=== PATIENT | female | born 1955 | race Caucasian/White ===

== ENCOUNTER 2025-02-15 16:41 | Inpatient (IN) | payer SELFPAY ==
[2025-02-15 13:57] VITALS: BMI 15.4
[2025-02-15 13:58] VITALS: BP 148/88
[2025-02-15 14:00] VITALS: BP 107/71
--- NOTE | 2025-02-15 14:20 | ED.GENMED ---
History of Present Illness
<Faustino Valdivia PA-C - Last Filed: 02/15/25 15:48>
General
Chief Complaint: Fall
Source: patient
Exam Limitations: none
Time Seen by Provider: 02/15/25 14:02
History of Present Illness
History of Present Illness:
69-year-old female 2 pack-a-day smoker presents via EMS from home after a fall she sustained 5 days ago. She fell onto the floor and had immediate buttock pain and struck her eye. She was unable to get off the floor. She has been scooting around
the floor since then. She has been sleeping on the floor. She has had several visitors come to her house who have encouraged her to call 911 but she has not up until today. She is not anticoagulated. She notes sores on her buttock from scooting
around over the past several days. She denies fevers. No other complaints
Phy Exam
<Faustino Valdivia PA-C - Last Filed: 02/15/25 15:48>
Physical Exam
Physical Exam:
General: Well-developed female mild increased work of breathing
HEENT: Normal cephalic periorbital hematoma noted to the left eye pupils equal round reactive to light
Heart: Regular rate and rhythm
Lungs: Clear no wheeze
Skin: Breakdown of the skin noted over the sacrum and bilateral ischium. Musculoskeletal exam: The spine is nontender over the cervical and lumbar spine however she is tender over the posterior pelvis
There is no rotation or deformity of the legs
Neurologic exam: Alert and oriented good sensation to all extremities
Course
<Faustino Valdivia PA-C - Last Filed: 02/15/25 15:48>
Orders/Labs/Results
Orders:
Orders
02/15/25 14:12
CT Head W/o Iv Contrast Urgent
Comment:
Reason For Exam: fall
CR Pelvis - 1 Or 2 Views Urgent
Comment:
Reason For Exam: fall
02/15/25 14:24
Basic Metabolic Panel Urgent
CPK [Creatine Phosphokinase] Urgent
Complete Blood Count/With Diff Urgent
02/15/25 15:38
0.9% Sodium Chloride 1000 ml [Nss] 1,000 ml IV BOLUS
02/15/25 15:44
Morphine Sulfate 4 mg IV NOW STA
Abnormal Lab Results
02/15/25
14:24
WBC 11.6 H 10^3/uL
(4.8-10.8)
RBC 2.98 L 10^6/uL
(4.20-5.40)
Hgb 11.1 L g/dL
(12.0-16.0)
Hct 33.2 L %
(37.0-47.0)
MCV 111.4 H fL
(81.0-99.0)
MCH 37.2 H pg
(27.0-31.0)
Abs Immat Gran (auto) 0.1 H 10^3/uL
(0-0.05)
Absolute Neuts (auto) 10.0 H 10^3/uL
(1.4-6.5)
Absolute Lymphs (auto) 0.7 L 10^3/uL
(1.2-3.4)
Absolute Monos (auto) 0.8 H 10^3/uL
(0.1-0.6)
Neutrophils % 86.2 H %
(42.2-75.2)
Lymphocytes % 6.1 L %
(20.5-51.1)
Sodium 130 L mmol/L
(135-145)
BUN 50 H mg/dl
(7-17)
Glucose 118 H mg/dl
(70-99)
Creatine Kinase 2952 H U/L
(30-135)
02/15/25 14:24
02/15/25 14:24
Vital Signs
Initial and Last Documented VS:
Initial Vital Signs
Temp Pulse Resp BP Pulse Ox
97.9 F 109 25 148/88 98
02/15/25 13:58 02/15/25 13:58 02/15/25 13:58 02/15/25 13:58 02/15/25 13:58
Last Documented Vital Signs
Temp Pulse Resp BP Pulse Ox
97.9 F 98 21 152/68 97
02/15/25 13:58 02/15/25 15:38 02/15/25 15:38 02/15/25 15:38 02/15/25 15:38
<Cj Calderon, DO - Last Filed: 02/15/25 15:46>
Orders/Labs/Results
Orders:
Orders
02/15/25 14:12
CT Head W/o Iv Contrast Urgent
Comment:
Reason For Exam: fall
CR Pelvis - 1 Or 2 Views Urgent
Comment:
Reason For Exam: fall
02/15/25 14:24
Basic Metabolic Panel Urgent
CPK [Creatine Phosphokinase] Urgent
Complete Blood Count/With Diff Urgent
02/15/25 15:38
0.9% Sodium Chloride 1000 ml [Nss] 1,000 ml IV BOLUS
02/15/25 15:44
Morphine Sulfate 4 mg IV NOW STA
Abnormal Lab Results
02/15/25
14:24
WBC 11.6 H 10^3/uL
(4.8-10.8)
RBC 2.98 L 10^6/uL
(4.20-5.40)
Hgb 11.1 L g/dL
(12.0-16.0)
Hct 33.2 L %
(37.0-47.0)
MCV 111.4 H fL
(81.0-99.0)
MCH 37.2 H pg
(27.0-31.0)
Abs Immat Gran (auto) 0.1 H 10^3/uL
(0-0.05)
Absolute Neuts (auto) 10.0 H 10^3/uL
(1.4-6.5)
Absolute Lymphs (auto) 0.7 L 10^3/uL
(1.2-3.4)
Absolute Monos (auto) 0.8 H 10^3/uL
(0.1-0.6)
Neutrophils % 86.2 H %
(42.2-75.2)
Lymphocytes % 6.1 L %
(20.5-51.1)
Sodium 130 L mmol/L
(135-145)
BUN 50 H mg/dl
(7-17)
Glucose 118 H mg/dl
(70-99)
Creatine Kinase 2952 H U/L
(30-135)
02/15/25 14:24
02/15/25 14:24
Vital Signs
Initial and Last Documented VS:
Initial Vital Signs
Temp Pulse Resp BP Pulse Ox
97.9 F 109 25 148/88 98
02/15/25 13:58 02/15/25 13:58 02/15/25 13:58 02/15/25 13:58 02/15/25 13:58
Last Documented Vital Signs
Temp Pulse Resp BP Pulse Ox
97.9 F 98 21 152/68 97
02/15/25 13:58 02/15/25 15:38 02/15/25 15:38 02/15/25 15:38 02/15/25 15:38
Zoëlt;Faustino Valdivia PA-C - Last Filed: 02/15/25 15:48>
MDM/Problems Addressed
Differential Diagnosis Includes:
Fall with prolonged downtime. She has been on the floor since 5 days ago. She has evidence of skin breakdown. Will check CK for evidence of rhabdo. There is pelvic pain from the fall. X-ray of the pelvis pending CT of the head pending.
<Faustino Valdivia PA-C - Last Filed: 02/15/25 15:48>
*Pulse Oximetry
SaO2: 98
Oxygen Mode of Delivery: Room air
Patient hypoxic: no
*Critical Care Note
Total Time (30-74mins, 75-104mins- exclusive of procedures): Not Applicable
<Faustino Valdivia PA-C - Last Filed: 02/15/25 15:48>
Update Note
Update Note:
X-ray consistent with pubic rami fracture on the left. CPK is 2952 with BUN of 50. I suspect dehydration. Fluids ordered pain medicine ordered discussed with emergency room attending. Will admit to hospital
ED Attending Note
<Faustino Valdivia PA-C - Last Filed: 02/15/25 15:48>
-
Portions of this chart may have been created with voice recognition software.� Occasional wrong word or��sound alike� substitutions may have occurred due to the inherent limitations of voice recognition software.
<Cj Calderon DO - Last Filed: 02/15/25 15:46>
ED Attending Note
Patient seen and examined by attending physician: Yes
I performed the substantive portion of visit, reviewed & personally made and approve the management plan that is documented in note by myself or JUSTIN.: Yes
ED Attending Note:
I have seen and evaluated the patient with a [id number] encounter. I have spoken to the advance practicer provider and involved in the medical history, the physical exam, medical decision making.
Evaluation and management service: agree unless noted differently below.
Results interpretation: agree unless noted differently below.
Focused HPI: 69-year-old female presenting with left trip and fall a few days ago. Since then, patient has been unable to ambulate. She has been move around the floor for basic necessities
Physical exam: Bruising to left face. Pain to left pelvis.
Medical Decision Making: Patient found to have evidence of rhabdomyolysis and left pelvic fracture. Will admit based on the fact that she is unable to ambulate. Will start IV fluids and IV pain medicine
Discharge Plan
Departure
Patient Disposition: Admit
Date of Disposition: 02/15/25
Time of Disposition: 15:48
Presentation/result/management discussed w/ accepting MD/DO: Hospitalist
Discharge Problem:
Rhabdomyolysis, Closed fracture of pubic ramus
Prescriptions:
No Action
No Current Medications
0
Referrals:
NONE,* [Family Provider, Internal Medicine]
Interventions
Interventions:
*Risk Screen - Suicide Last Done: 02/15/25 14:15
*General Assessment Last Done: 02/15/25 14:15
*Neglect/Abuse Screening Last Done: 02/15/25 14:15
*ED- Fall Risk Assessment Last Done: 02/15/25 14:08
*ED COVID-19 Vaccine History Last Done: 02/15/25 14:08
*ED Influenza Vaccine History Last Done: 02/15/25 14:08
Discharge Date and Time
Print Language: EGYPTIAN
[2025-02-15 14:38] LABS: Hematocrit 33.2 % (37.0-47.0); Hemoglobin 11.1 g/dL (12.0-16.0); Mean Corp Hgb Conc. 33.4 g/dL (33.0-37.0); Mean Corpuscular Volume 111.4 fL (81.0-99.0); Nucleated Red Blood Cells % 0 %; Platelet Count 173 10^3/uL (130-400); Red Cell Dist. Width 13.5 % (11.5-14.5)
[2025-02-15 15:12] LABS: Blood Urea Nitrogen 50 mg/dl (7-17); Calcium 9.0 mg/dl (8.4-10.2); Carbon Dioxide 27 mmol/L (22-30); Chloride 100 mmol/L (98-107); Estimated Creatinine Clearance 36 ml/min; Glucose 118 mg/dl (70-99); Sodium 130 mmol/L (135-145); eGFR > 60.00
[2025-02-15 15:38] VITALS: BP 152/68
[2025-02-15] MEDS: NSS 1000 IV ×2 (15:47→18:10)
[2025-02-15] MEDS: MORPHINE SULFATE 4 MG IV (15:48)
[2025-02-15 16:00] VITALS: BP 154/69
--- NOTE | 2025-02-15 16:04 | HPS.HSE ---
Family Physician
-
Family Physician: * NONE
Chief Complaint
-
fall and butt pain
History of Present Illness
69-year-old female who is a smoker without past medical history presenting with fall 5 days ago. Fall was mechanical from her dogs not cooperating with her. Normally no ambulatory dysfunction. She fell onto the floor and had bilateral buttock
pain radiating to her thighs and lower back. She was unable to get off the floor. She has been scooting around the floor since then. She has been sleeping on the floor. She has had several visitors come to her house who have encouraged her to
call 911 but she has not done so until today because she does not have insurance and did not want to come to the hospital. She has sores on her butt from scooting around the past few days. Denies any fever.
She smokes 1 to 2 pack of cigarettes per day. She drinks 3-4 beers per week.
Medical History
Past Medical History
Past Medical History: Reports Other (none )
Past Surgical History: Reports Other (Hernia repair, D&Cs)
Social History
Tobacco: Smoker
Alcohol: Occasional
Drug: None
Family History
Family History: Not pertinent
Allergies / Home Medications
Allergies reflects when Allergies were last updated in [facility].
Home Medications with original date entered in [facility]
Allergy/Medication List:
Allergies
Allergy/AdvReac Type Severity Reaction Status Date / Time
No Known Allergies Allergy Unverified 02/15/25 14:15
Home Medications
No Meds [No Current Medications] 02/15/25
Review of Systems
-
History Source: Patient
A 12 point ROS was completed and negative except as noted: Yes
Constitutional: Reports No Symptoms
EENT: Reports No Symptoms
Respiratory: Reports No Symptoms
Cardiac: Reports No Symptoms
Abdomen/GI: Reports No Symptoms
: Reports No Symptoms
Musculoskeletal: Reports See HPI
Skin: Reports No Symptoms
Neurological: Reports No Symptoms
Endocrine: Reports No Symptoms
Hematologic/Lymphatic: Reports No Symptoms
Psych: Reports No Symptoms
Physical Exam
Vital Signs
Vital Signs
Temp Pulse Resp BP Pulse Ox
97.9 F 97 23 152/68 100
02/15/25 13:58 02/15/25 15:45 02/15/25 15:45 02/15/25 15:38 02/15/25 15:45
Physical Exam
General: Well Developed, Well Nourished and No Apparent Distress
HEENT: NormoCephalic, Moist mucous membranes and Atraumatic
Respiratory: Clear
Cardiac: S1/S2 and Regular Rhythm; No Murmur or Rub
GI: Soft, Non Tender, Non Distended and Normal Bowel Sounds; No Organomegaly
Rectal: Deferred by Provider
Musculoskeletal: No Clubbing, No Cyanosis and No Edema
Skin: No Rash
Neuro: Nonfocal/grossly intact
Laboratory Results
-
02/15/25 14:24
02/15/25 14:24
Laboratory Results
Total Bilirubin Cancelled 02/15/25 14:24
AST Cancelled 02/15/25 14:24
ALT Cancelled 02/15/25 14:24
Alkaline Phosphatase Cancelled 02/15/25 14:24
Data Reviewed
-
Lab Data: Labs Reviewed by me
Old Records: Reviewed
Impression/Plan
-
IMPRESSION:
PLAN:
# Mechanical fall with left inferior pubic rami fracture
- Tylenol, morphine for pain
- PT OT
# Left periorbital ecchymosis
- No symptoms
- CT head negative
# Acute rhabdomyolysis
- CK 30,00
-Leukocytosis
- IV fluids
# Presumably chronic anemia
- Hemoglobin 11.1
Smoker
- Nicotine patch
Full code
DVT prophylaxis�SCDs
Regular diet
[2025-02-15] MEDS: NICODERM TRANSDERMAL 14 MG TRANSDERM (16:31)
--- NOTE | 2025-02-15 17:18 | EDCM ---
CM reviewed chart and met with pt and daughter bedside in ED. Pt lives alone in 1 story home, 1-2 [address].
Pt fell 5 days ago and was unable, has skin breakdown on sacrum.
Independent in ADLs, personal care and ambulation at baseline. Does not use assistive devices, neighbor lent her 2 walkers.
Pt confirms she is uninsured, told me she did not apply for Medicare because she did not have any supplemental insurance.
Pt and daughter are working on Medicare application as it is open enrollment.
Does not have PCP.
[facility]
Anticipate discharge home, CM will continue to follow for all discharge planning needs.
[2025-02-15 17:49] VITALS: BMI 15.2
[2025-02-15 18:05] VITALS: BP 139/72
[2025-02-15] MEDS: MORPHINE SULFATE 2 MG IV (18:06)
--- NOTE | 2025-02-15 18:38 | PTCARENOTE ---
Pt arrived to unit around 1800 this shift. She was a pullover fro stretcher to bed with x3 staff. Pain meds given for pain. Skin assessment completed. VSS. Patient and daughter oriented to room and dinner ordered. Plan of care ongoing.
[2025-02-15] MEDS: MORPHINE SULFATE 1 MG IV (21:30)
[2025-02-15] MEDS: REMOVE NICOTINE PATCH 1 PATCH REMOVE (21:31)
[2025-02-15 23:00] VITALS: BP 134/58
[2025-02-16] MEDS: MORPHINE SULFATE 2 MG IV ×2 (05:28→19:11)
[2025-02-16 06:07] LABS: Hematocrit 27.5 % (37.0-47.0); Hemoglobin 9.1 g/dL (12.0-16.0); Mean Corp Hgb Conc. 33.1 g/dL (33.0-37.0); Mean Corpuscular Volume 114.6 fL (81.0-99.0); Nucleated Red Blood Cells % 0 %; Platelet Count 150 10^3/uL (130-400); Red Cell Dist. Width 13.3 % (11.5-14.5)
[2025-02-16] MEDS: TYLENOL 650 MG PO ×2 (06:13→20:37)
--- NOTE | 2025-02-16 06:28 | PTCARENOTE ---
Pt refusing Q2Ts. pt educated on importance of turns. Pt agreeable to have pillow placed under hip. Could only tolerate for 15 minutes. PRN pain meds were given prior to turning pt (see MAR). Call santoro within reach and plan of care ongoing.
[2025-02-16 06:37] LABS: ALT (SGPT) 69 U/L (0-35); AST (SGOT) 87 U/L (14-36); Albumin 2.5 g/dl (3.5-5.0); Alkaline Phosphatase 74 U/L (38-126); Blood Urea Nitrogen 21 mg/dl (7-17); Calcium 7.8 mg/dl (8.4-10.2); Carbon Dioxide 26 mmol/L (22-30); Chloride 104 mmol/L (98-107); Estimated Creatinine Clearance 59 ml/min; Glucose 91 mg/dl (70-99); Potassium 3.3 mmol/L (3.5-5.1); Sodium 129 mmol/L (135-145); Total Protein 5.2 g/dl (6.3-8.2); eGFR > 60.00
[2025-02-16] MEDS: NSS 1000 IV (07:16)
[2025-02-16 07:29] VITALS: BP 124/58
[2025-02-16] MEDS: NICODERM TRANSDERMAL 14 MG TRANSDERM (08:09)
--- NOTE | 2025-02-16 09:07 | W.PN.HOSP.TC ---
Today's Communication/Plan
-
Pain control
Assessment / Plan
Assessment / Plan
Physical exam:
General: Well Developed, Well Nourished and No Apparent Distress
HEENT: Significant ecchymosis of left periorbital. Normocephalic, traumatic and Moist Mucous Membranes
Respiratory: Clear to Auscultation; Negative Wheezes, Rales or Rhonchi
Cardiac: Regular Rhythm and S1/S2
GI: Soft, Nontender and Nondistended
Musculoskeletal: Tenderness pelvic area. No Clubbing, No Cyanosis and No Edema
Neuro: Awake, Alert and Oriented, no neurological deficit
Psych: Calm
A/P:
PLAN:
# Mechanical fall with left inferior pubic rami fracture
- Tylenol, morphine for pain. Add Oxy as needed
- PT OT recommends skilled rehab
# Left periorbital ecchymosis
- No symptoms
- CT head negative
#Hypokalemia
Replete and trend
# Acute rhabdomyolysis
- CK 30,00--> down to 760
-Leukocytosis
- Stop IV fluids
#Hyponatremia
Check basic hyponatremia workup
Trend sodium
# Presumably chronic anemia with some acute component or dilutional
- Hemoglobin 11.1--> down to 9.1 today
Smoker
- Nicotine patch
Full code
DVT prophylaxis�SCDs
Total time spent on today's encounter was 35 minutes which included time spent in counseling the patient/family regarding diagnosis and treatment plan as listed above, goals of care, and symptom management. Case was discussed with nursing staff,
specialists, and care coordinators/case management. All labs and imaging personally reviewed by me. Remainder the time spent in detailed review of previous records, lab data, imaging, and other medical provider documentation.
Anticipated Discharge: Within 24 hours
Subjective/Interval History
-
Date of Service: February 16, 2025
Patient states pain mostly in the buttock area but is better overall. Afebrile
Objective Data
-
Labs:
Laboratory Results
02/16/25
05:43
WBC 9.0
Hgb 9.1 L
Hct 27.5 L
Plt Count 150
Sodium 129 L
Potassium 3.3 L
Chloride 104
Carbon Dioxide 26
BUN 21 H
Creatinine 0.6
Glucose 91
Calcium 7.8 L
Total Bilirubin 0.6
AST 87 H
ALT 69 H
Alkaline Phosphatase 74
Vital Signs:
Vital Signs
Temp Pulse Resp BP Pulse Ox
99 F 93 18 124/58 94
02/16/25 07:29 02/16/25 07:29 02/16/25 07:29 02/16/25 07:29 02/16/25 07:29
I&O
02/15/25 02/16/25 02/17/25
05:59 06:59 06:59
Intake Total 240 / 240
Output Total 180 / 180
Balance 60 / 60
[2025-02-16] MEDS: KCL 40 MEQ PO (10:20)
--- NOTE | 2025-02-16 12:19 | WOUNDNOTE ---
R KNEE (DISTAL LATERAL)
--- NOTE | 2025-02-16 12:21 | WOUNDNOTE ---
WO RN note: Patient admitted with pubic rami fracture. Patient feel at home and did not get up for 5 days scooting on the floor. She lives alone and has a couple dogs.
See H&P for complete history.
PMH: Smoker, drinks 3-4 beers a day, hernia repair, smoker, anxiety.
Wound Location and type/assessment: Patient admitted with: Unstageable sacral pressure injury with with yellow/brown necrotic tissue, unstageable R ischial pressure injury with black/brown necrotic tissue, DTI L ischium with purple/black ecchymotic
tissue. R heel DTI. L heel blanchable persistent very red. L groin bruise. R elbow scabbed abrasions. L periorbital bruise. Back stage 2 pressure injury, scabbed. L hip stage 1 vs DTI, red/purple ecchymotic, non blanchable.
Appetite: patient hungry for lunch.
Pressure redistribution devices in place: [employer] Accumax. Patient cannot turn self in bed.
Plan: Silicone border foam changed on sacrum, bilateral ischium. Silicone border foam applied to L hip and spine. Static air overlay mattress applied with help from BUSTER Aquino. Patient pulled up in bed and repositioned with help from BUSTER Aquino.
Will update and confirm orders with Dr. Morocho and discussed with BUSTER Aquino. Patient may eventually require debridement of sacral/ischial pressure injuries. Instructed patient pressure injury prevention measures, heel elevation and to take air chair
cushion when discharged. Instructed patient to follow up at [facility].
Care plan to be updated and will follow as needed.
Note to case management of equipment requested for discharge: Air mattress.
Recommend follow up at wound care center upon discharge.
--- NOTE | 2025-02-16 12:36 | WOUNDNOTE ---
L KNEE (LATERAL DISTAL)
[2025-02-16 15:00] VITALS: BP 142/65
[2025-02-16 15:22] VITALS: BMI 15.2
[2025-02-16] MEDS: SENOKOT 8.6 MG PO (19:12)
[2025-02-16] MEDS: REMOVE NICOTINE PATCH 1 PATCH REMOVE (22:52)
[2025-02-16] MEDS: ROXICODONE 5 MG PO (22:57)
[2025-02-16 23:25] VITALS: BP 124/64
[2025-02-17] MEDS: ROXICODONE 5 MG PO ×2 (05:29→22:01)
[2025-02-17 05:54] LABS: Hematocrit 29.1 % (37.0-47.0); Hemoglobin 9.3 g/dL (12.0-16.0); Mean Corp Hgb Conc. 32.0 g/dL (33.0-37.0); Mean Corpuscular Volume 115.5 fL (81.0-99.0); Platelet Count 183 10^3/uL (130-400); Red Cell Dist. Width 13.4 % (11.5-14.5)
[2025-02-17 06:53] LABS: Blood Urea Nitrogen 8 mg/dl (7-17); Calcium 7.9 mg/dl (8.4-10.2); Carbon Dioxide 29 mmol/L (22-30); Chloride 101 mmol/L (98-107); Estimated Creatinine Clearance 59 ml/min; Glucose 87 mg/dl (70-99); Magnesium 1.9 mg/dl (1.6-2.3); Potassium 3.6 mmol/L (3.5-5.1); Sodium 127 mmol/L (135-145); eGFR > 60.00
[2025-02-17 07:21] LABS: Cortisol, Random 17.1 ug/dl
[2025-02-17 08:00] VITALS: BP 146/68
[2025-02-17] MEDS: MIRALAX 17 GRAMS PO (08:30)
[2025-02-17] MEDS: SANTYL OINTMENT 1 APPLIC TOPICAL (08:30)
[2025-02-17] MEDS: SENOKOT 8.6 MG PO ×2 (08:30→21:14)
[2025-02-17] MEDS: NICODERM TRANSDERMAL 14 MG TRANSDERM (08:31)
[2025-02-17] MEDS: DAKIN'S SOLUTION 0.125% 1/4 STRENGTH 473 ML TOPICAL (08:34)
--- NOTE | 2025-02-17 08:55 | W.PN.HOSP.TC ---
Addendum entered and electronically signed by Kareem Morocho MD 02/17/25 15:33:
Underweight
Traumatic rhabdomyolysis
Unstageable sacral pressure injury
Unstageable R ischial pressure injury
DTI L ischium
R heel DTI
Back stage 2 pressure injury
L hip stage 1, probable deep tissue injury
Original Note:
Today's Communication/Plan
-
Pain control. Oral fluid restriction intake
Assessment / Plan
Assessment / Plan
Physical exam:
General: Well Developed, Well Nourished and No Apparent Distress
HEENT: Significant ecchymosis of left periorbital. Normocephalic, traumatic and Moist Mucous Membranes
Respiratory: Clear to Auscultation; Negative Wheezes, Rales or Rhonchi
Cardiac: Regular Rhythm and S1/S2
GI: Soft, Nontender and Nondistended
Musculoskeletal: Tenderness pelvic area. No Clubbing, No Cyanosis and No Edema. Wounds present
Neuro: Awake, Alert and Oriented, no neurological deficit
Psych: Calm
A/P:
PLAN:
# Mechanical fall with left inferior pubic rami fracture
- Tylenol, morphine for pain. Add Oxy as needed
-Wound care eval
- PT OT recommends skilled rehab
# Left periorbital ecchymosis
- No symptoms
- CT head negative
#Hypokalemia
Repleted
# Acute rhabdomyolysis
- CK 30,00--> down to 760
-Leukocytosis
- Off IV fluids
#Hyponatremia--> mild worsening
Check basic hyponatremia workup and normal TSH and cortisol level but pending urine sodium and urine osmolarity
Start fluid oral restriction
Start salt tablet
Trend sodium
# Presumably chronic anemia with some acute component or dilutional
- Hemoglobin stable at 9.3 today
Smoker
- Nicotine patch
Full code
DVT prophylaxis�SCDs
Total time spent on today's encounter was 35 minutes which included time spent in counseling the patient/family regarding diagnosis and treatment plan as listed above, goals of care, and symptom management. Case was discussed with nursing staff,
specialists, and care coordinators/case management. All labs and imaging personally reviewed by me. Remainder the time spent in detailed review of previous records, lab data, imaging, and other medical provider documentation.
Anticipated Discharge: Within 24 hours
Subjective/Interval History
-
Date of Service: February 17, 2025
Patient pain better overall. No nausea or vomiting. Afebrile
Objective Data
-
Labs:
Laboratory Results
02/17/25
05:26
WBC 9.6
Hgb 9.3 L
Hct 29.1 L
Plt Count 183 D
Sodium 127 L
Potassium 3.6
Chloride 101
Carbon Dioxide 29
BUN 8
Creatinine 0.5 L
Glucose 87
Calcium 7.9 L
Vital Signs:
Vital Signs
Temp Pulse Resp BP Pulse Ox
98.5 F 91 14 146/68 93
02/17/25 08:00 02/17/25 08:00 02/17/25 08:00 02/17/25 08:00 02/17/25 08:00
I&O
02/16/25 02/17/25 02/18/25
06:59 06:59 06:59
Intake Total 240 / 240 940 / 940
Output Total 180 / 180 350 / 350
Balance 60 / 60 590 / 590
[2025-02-17] MEDS: MORPHINE SULFATE 2 MG IV ×2 (09:18→16:35)
[2025-02-17] MEDS: SODIUM CHLORIDE 1 GRAM PO ×2 (12:12→21:14)
--- NOTE | 2025-02-17 13:48 | PN.CDI ---
CDI
- -
CDI:
Physician Documentation Request
Admit Date: 02/15/25 16:41
Dear Doctor Bailee,
Patient admitted with left inferior pubic rami fracture.
02/16 N note, 'Patient admitted with: Unstageable sacral pressure injury with with yellow/brown necrotic tissue, unstageable R ischial pressure injury with black/brown necrotic tissue, DTI L ischium with purple/black ecchymotic tissue. R heel
DTI....Back stage 2 pressure injury, scabbed. L hip stage 1 vs DTI....'
Physician documentation of the type and location of wounds is required for compliant documentation. Based on the above clinical findings and your assessment, please provide the following in your progress note:
Type (etiology) of ulcer/wound:
- Pressure (decubitus) ulcer
- Other
- Unable to determine
For a pressure ulcer, please also include the stage* of the ulcer:
- Stage 1 - Skin intact, non-blanchable redness
- Stage 2 - Partial thickness loss of dermis, includes intact or open blister
- Stage 3 - Full thickness tissue not including bone, tendon or muscle
- Stage 4 - Full thickness tissue loss, including exposed bone, tendon or muscle
- Unstageable - Full thickness loss in which the base of the ulcer is covered by slough (yellow, colin, lynn, green or brown) and/or eschar (colin, brown or black) in the wound bed.
- Unable to determine
Use of terms such as suspected, likely, concern for, or probable (associated with a specific diagnosis that is being evaluated, monitored, or treated as if it exists) are acceptable and can be coded in the inpatient setting, when documented at the
time of discharge.
Thank you,
Phyllis DEY,RN,CCDS
CDI Specialist
Available via [place] text
Please use your independent medical judgment in providing your response.
*Source: National Pressure Ulcer Advisory Panel (NPUAP)
--- NOTE | 2025-02-17 14:01 | PN.CDI ---
CDI
- -
CDI:
Physician Documentation Request
Admit Date: 02/15/25 16:41
Dear Doctor Bailee,
Patient admitted with left inferior pubic rami fracture.
ED note, '....presents via EMS from home after a fall she sustained 5 days ago. She fell onto the floor and had immediate buttock pain and struck her eye. She was unable to get off the floor. She has been scooting around the floor since then.
She has been sleeping on the floor. '
02/16 PN, 'Acute rhabdomyolysis- CK 30,00--> down to 760.'
Please provide in your note the likely etiology of acute rhabdomyolysis:
Traumatic rhabdomyolysis
Non -traumatic rhabdomyolysis
Other
Use of terms such as suspected, likely, concern for, or probable (associated with a specific diagnosis that is being evaluated, monitored, or treated as if it exists) are acceptable and can be coded in the inpatient setting, when documented at the
time of discharge.
Thank you,
Phyllis DEY,RN,CCDS
CDI Specialist
Available via [place] text
Please use your independent medical judgment in providing your response.
--- NOTE | 2025-02-17 14:21 | PN.CDI ---
CDI
- -
CDI:
Physician Documentation Request
Admit Date: 02/15/25 16:41
Dear Doctor Bailee,
Patient admitted with left inferior pubic rami fracture.
Please review the following and provide your response in the progress notes.
Clinical Indicators:
Height: 5' 5'
Weight: 91 lb 2 oz
BMI: 15.2
Please provide an associated diagnosis related to the abnormal BMI, such as:
Underweight
Cachectic
Anorexia
Other
BMI < or = to 19
Underweight
Weight Loss
Cachectic
Anorexia
Use of terms such as suspected, likely, concern for, or probable (associated with a specific diagnosis that is being evaluated, monitored, or treated as if it exists) are acceptable and can be coded in the inpatient setting, when documented at the
time of discharge.
Thank you,
Phyllis DEY,RN,CCDS
CDI Specialist
Available via [place] text
Please use your independent medical judgment in providing your response.
[2025-02-17 15:00] VITALS: BP 136/73
[2025-02-17] MEDS: REMOVE NICOTINE PATCH 1 PATCH REMOVE (21:14)
[2025-02-17 23:00] VITALS: BP 137/73
[2025-02-18] MEDS: ROXICODONE 5 MG PO ×2 (04:16→09:10)
[2025-02-18 06:09] LABS: Blood Urea Nitrogen 5 mg/dl (7-17); Calcium 8.1 mg/dl (8.4-10.2); Carbon Dioxide 31 mmol/L (22-30); Chloride 98 mmol/L (98-107); Estimated Creatinine Clearance 59 ml/min; Glucose 121 mg/dl (70-99); Potassium 3.6 mmol/L (3.5-5.1); Sodium 130 mmol/L (135-145); eGFR > 60.00
[2025-02-18 07:00] VITALS: BP 146/78
[2025-02-18] MEDS: MIRALAX 17 GRAMS PO (08:23)
[2025-02-18] MEDS: NICODERM TRANSDERMAL 14 MG TRANSDERM (08:23)
[2025-02-18] MEDS: SENOKOT 8.6 MG PO ×2 (08:23→20:51)
[2025-02-18] MEDS: SANTYL OINTMENT 1 APPLIC TOPICAL (08:24)
[2025-02-18] MEDS: DAKIN'S SOLUTION 0.125% 1/4 STRENGTH 473 ML TOPICAL (08:24)
[2025-02-18] MEDS: SODIUM CHLORIDE 1 GRAM PO ×2 (08:25→20:51)
[2025-02-18] MEDS: MORPHINE SULFATE 2 MG IV ×2 (10:09→17:55)
[2025-02-18 10:27] VITALS: BP 140/88; PULSE 127; O2SAT 93
--- NOTE | 2025-02-18 11:40 | WOUNDNOTE ---
[facility] RN note: Patient assisted from recliner with air chair cushion to bed with air overlay mattress with RN Dom. Assisted RN Dom with dressing changes. Current wound care appropriate. Sacrum, bilateral ischial pressure injuries with yellow/brown
slough, unstageable. +Necrotic odor which dissipated after dressing removal. Wounds cleansed with Dakin's solution. Patient reports a good appetite. R heel purple/black ecchymotic, DTI. Dressings changed on heels. Spine abrasions dry/improved. L hip
is a resolving bruise, not a DTI. Will follow as needed.
--- NOTE | 2025-02-18 12:19 | W.PN.HOSP.TC ---
Today's Communication/Plan
-
Pain control. Discharge planning
Assessment / Plan
Assessment / Plan
Physical exam:
General: Well Developed, Well Nourished and No Apparent Distress
HEENT: Significant ecchymosis of left periorbital. Normocephalic, traumatic and Moist Mucous Membranes
Respiratory: Clear to Auscultation; Negative Wheezes, Rales or Rhonchi
Cardiac: Regular Rhythm and S1/S2
GI: Soft, Nontender and Nondistended
Musculoskeletal: Tenderness pelvic area. No Clubbing, No Cyanosis and No Edema. Wounds present
Neuro: Awake, Alert and Oriented, no neurological deficit
Psych: Calm
A/P:
PLAN:
# Mechanical fall with left inferior pubic rami fracture
- Tylenol, morphine for pain. Add Oxy as needed
-Wound care eval
- PT OT recommends skilled rehab
- updated daughter over the phone today
#Skin soft tissue
Traumatic rhabdomyolysis
Unstageable sacral pressure injury
Unstageable R ischial pressure injury
DTI L ischium
R heel DTI
Back stage 2 pressure injury
L hip stage 1, probable deep tissue injury
#Underweight
-Nutritional support
# Left periorbital ecchymosis
- No symptoms
- CT head negative
#Hypokalemia
Repleted
# Acute rhabdomyolysis
- CK 30,00--> down to 760
-Leukocytosis
- Off IV fluids
#Hyponatremia
Check basic hyponatremia workup and normal TSH and cortisol level but pending urine sodium and urine osmolarity
Continue fluid oral restriction
Continue salt tablet
Trend sodium
# Presumably chronic anemia with some acute component or dilutional
- Hemoglobin stable
Smoker
- Nicotine patch
Full code
DVT prophylaxis�SCDs
Total time spent on today's encounter was 35 minutes which included time spent in counseling the patient/family regarding diagnosis and treatment plan as listed above, goals of care, and symptom management. Case was discussed with nursing staff,
specialists, and care coordinators/case management. All labs and imaging personally reviewed by me. Remainder the time spent in detailed review of previous records, lab data, imaging, and other medical provider documentation.
Anticipated Discharge: 24 - 48 hours
Subjective/Interval History
-
Date of Service: February 18, 2025
Patient moving out from bed to chair today. Pain manageable. Afebrile
Objective Data
-
Labs:
Laboratory Results
02/18/25
05:25
Sodium 130 L
Potassium 3.6
Chloride 98
Carbon Dioxide 31 H
BUN 5 L
Creatinine 0.6
Glucose 121 H
Calcium 8.1 L
Vital Signs:
Vital Signs
Temp Pulse Resp BP Pulse Ox
98.1 F 112 16 146/78 94
02/18/25 07:00 02/18/25 07:00 02/18/25 07:00 02/18/25 07:00 02/18/25 07:30
I&O
02/17/25 02/18/25 02/19/25
06:59 06:59 06:59
Intake Total 940 / 940 920 / 920
Output Total 350 / 350 1775 / 1775
Balance 590 / 590 -855 / -855
--- NOTE | 2025-02-18 13:26 | WOUNDNOTE ---
WOC RN note: Anthony Keyes re: recommend an air mattress for patient at SNF. She has unstageable sacral and bilateral ischial pressure injuries.
[2025-02-18 15:00] VITALS: BP 120/58
[2025-02-18] MEDS: REMOVE NICOTINE PATCH 1 PATCH REMOVE (20:52)
[2025-02-18 23:47] VITALS: BP 116/73
[2025-02-19] MEDS: ROXICODONE 5 MG PO ×4 (01:33→17:00)
[2025-02-19 06:29] LABS: Hematocrit 27.8 % (37.0-47.0); Hemoglobin 9.7 g/dL (12.0-16.0)
[2025-02-19 07:00] VITALS: BP 108/73
[2025-02-19 07:14] LABS: Blood Urea Nitrogen 6 mg/dl (7-17); Calcium 7.9 mg/dl (8.4-10.2); Carbon Dioxide 28 mmol/L (22-30); Chloride 98 mmol/L (98-107); Estimated Creatinine Clearance 59 ml/min; Glucose 93 mg/dl (70-99); Potassium 3.9 mmol/L (3.5-5.1); Sodium 126 mmol/L (135-145); eGFR > 60.00
[2025-02-19] MEDS: MIRALAX 17 GRAMS PO (08:13)
[2025-02-19] MEDS: SANTYL OINTMENT 1 APPLIC TOPICAL (08:13)
[2025-02-19] MEDS: DAKIN'S SOLUTION 0.125% 1/4 STRENGTH 473 ML TOPICAL (08:14)
[2025-02-19] MEDS: NICODERM TRANSDERMAL 14 MG TRANSDERM (08:14)
[2025-02-19] MEDS: SENOKOT 8.6 MG PO ×2 (08:14→21:38)
[2025-02-19] MEDS: SODIUM CHLORIDE 1 GRAM PO ×2 (08:21→21:39)
--- NOTE | 2025-02-19 11:55 | W.PN.HOSP.TC ---
Today's Communication/Plan
-
Nephrology consult
Assessment / Plan
Assessment / Plan
Physical exam:
General: Well Developed, Well Nourished and No Apparent Distress
HEENT: Significant ecchymosis of left periorbital. Normocephalic, traumatic and Moist Mucous Membranes
Respiratory: Clear to Auscultation; Negative Wheezes, Rales or Rhonchi
Cardiac: Regular Rhythm and S1/S2
GI: Soft, Nontender and Nondistended
Musculoskeletal: Tenderness pelvic area. No Clubbing, No Cyanosis and No Edema. Wounds present
Neuro: Awake, Alert and Oriented, no neurological deficit
Psych: Calm
A/P:
PLAN:
#Hyponatremia--> worsening sodium to 126 today
Request nephrology consult given hyponatremia has worsened despite fluid restriction and salt tablets.
Continue to trend sodium
Checking basic hyponatremia workup and normal TSH and cortisol level but pending urine sodium and urine osmolarity
Continue fluid oral restriction
Continue salt tablet
Trend sodium
# Mechanical fall with left inferior pubic rami fracture
- Tylenol, morphine for pain. Add Oxy as needed
-Wound care eval
- PT OT recommends skilled rehab
- updated daughter over the phone yesterday
#Skin soft tissue
Traumatic rhabdomyolysis
Unstageable sacral pressure injury
Unstageable R ischial pressure injury
DTI L ischium
R heel DTI
Back stage 2 pressure injury
L hip stage 1, probable deep tissue injury
#Underweight
-Nutritional support
# Left periorbital ecchymosis
- No symptoms
- CT head negative
#Hypokalemia
Repleted
# Acute rhabdomyolysis
- CK 30,00--> down to 760
-Leukocytosis
- Off IV fluids
# Presumably chronic anemia with some acute component or dilutional
- Hemoglobin stable
Smoker
- Nicotine patch
Full code
DVT prophylaxis�SCDs
Total time spent on today's encounter was 35 minutes which included time spent in counseling the patient/family regarding diagnosis and treatment plan as listed above, goals of care, and symptom management. Case was discussed with nursing staff,
specialists, and care coordinators/case management. All labs and imaging personally reviewed by me. Remainder the time spent in detailed review of previous records, lab data, imaging, and other medical provider documentation.
Anticipated Discharge: 24 - 48 hours
Subjective/Interval History
-
Date of Service: February 19, 2025
Patient pain is manageable. Generalized weakness.
Objective Data
-
Labs:
Laboratory Results
02/19/25
06:12
Hgb 9.7 L
Hct 27.8 L
Sodium 126 L
Potassium 3.9
Chloride 98
Carbon Dioxide 28
BUN 6 L
Creatinine 0.5 L
Glucose 93
Calcium 7.9 L
Vital Signs:
Vital Signs
Temp Pulse Resp BP Pulse Ox
98.1 F 102 16 108/73 93
02/19/25 07:00 02/19/25 07:00 02/19/25 07:00 02/19/25 07:00 02/19/25 07:00
I&O
02/18/25 02/19/25 02/20/25
06:59 06:59 06:59
Intake Total 920 / 920 620 / 620
Output Total 1775 / 1775
Balance -855 / -855 620 / 620
--- NOTE | 2025-02-19 12:24 | W.CON.NEPH ---
Consultation
-
Date/Time Consultation Requested: 02/19/2025 11 AM
Date/Time Consultation Performed: 02/19/2025 12 PM
Requesting Provider: Dr. Morocho
Performing Provider: Dr. Cortez
Reason for Consultation: Hyponatremia
Medical History
-
Chief Complaint: Hyponatremia
History of Present Illness:
This is a 69-year-old female who has very limited past medical history as she has not seen a healthcare provider for 10 years time because of lack of health insurance. She presented to the emergency room because of a fall about 5 days prior to
admission. This was a mechanical incident. This had disturbed her ambulation and as it did not improve she finally decided that she need to come to the emergency room. She has not been eating or drinking as much since the incident because she had
no way of getting to the bathroom in a practical manner. In the emergency room she was noted to have a hyponatremic value sodium of 130 which has now fallen to 126. She was noted also with mild anemia. She was relatively hypotensive.
Past Medical History
Hernia repair, D&C
Social History
Tobacco: Smoker
Alcohol: Daily
Family History
Family History: Not Pertinent
Allergies / Home Medications
Allergy/AdvReac Type Severity Reaction Status Date / Time
No Known Allergies Allergy Unverified 02/15/25 14:15
�Medication �Instructions �Recorded �Confirmed �Type
No Meds [No Current Medications] 02/15/25 02/15/25 History
Review of Systems
-
Pain on buttocks and face
Bowel incontinence
All other systems: Negative unless noted
Physical Exam
Vital Signs
Vital Signs
Temp Pulse Resp BP Pulse Ox
98.1 F 102 16 108/73 93
02/19/25 07:00 02/19/25 07:00 02/19/25 07:00 02/19/25 07:00 02/19/25 07:45
Lab Results
WBC 9.6 10^3/uL (4.8-10.8) 02/17/25 05:26
RBC 2.52 10^6/uL (4.20-5.40) L 02/17/25 05:26
Hgb 9.7 g/dL (12.0-16.0) L 02/19/25 06:12
Hct 27.8 % (37.0-47.0) L 02/19/25 06:12
Plt Count 183 10^3/uL (130-400) D 02/17/25 05:26
Sodium 126 mmol/L (135-145) L 02/19/25 06:12
Potassium 3.9 mmol/L (3.5-5.1) 02/19/25 06:12
Chloride 98 mmol/L (98-107) 02/19/25 06:12
Carbon Dioxide 28 mmol/L (22-30) 02/19/25 06:12
BUN 6 mg/dl (7-17) L 02/19/25 06:12
Creatinine 0.5 mg/dL (0.6-1.0) L 02/19/25 06:12
eGFR > 60.00 02/19/25 06:12
Glucose 93 mg/dl (70-99) 02/19/25 06:12
Calcium 7.9 mg/dl (8.4-10.2) L 02/19/25 06:12
Albumin 2.5 g/dl (3.5-5.0) L 02/16/25 05:43
Physical Exam
Patient is awake alert oriented and in no distress. Mood and affect were pleasant, insight and judgment were good. Pupils are equal round and reactive to light, extraocular movements are intact, sclera were anicteric. Hearing was normal, ears and
nose are intact. Oropharynx was clear. Neck was supple with trachea midline and no thyromegaly. Heart was regular rate and rhythm without rubs. Lower extremities without edema. Lungs were clear to auscultation bilaterally and with normal
excursion. Abdomen was soft, nontender, with normal active bowel sounds, and no hepatosplenomegaly. Skin was without rash and with normal turgor. Ecchymoses noted on right side of her face
Data Reviewed
-
Radiology: Report Reviewed by me (Pelvis x-ray possible left inferior pubic ramus fracture)
CT Scan: Report Reviewed by me (CT head no acute disease)
Labs: Labs Reviewed by me
Assessment/Plan
-
Assessment
Fall
Anemia
Hyponatremia
Relative hypotension
Smoker
Plan
Check urine studies
Maintain mild fluid restriction
Follow BMP
Further intervention based on urine studies
[2025-02-19] MEDS: TYLENOL 650 MG PO (14:21)
[2025-02-19 15:00] VITALS: BP 126/56
--- NOTE | 2025-02-19 15:30 | PTCARENOTE ---
Pt states pain remains a 7/10 after both oxycodone and tylenol administration. Pt states she is going to try to avoid morphine at this time. She is aware that it remains an option if the pain continues to be severe. POC ongoing.
[2025-02-19] MEDS: REMOVE NICOTINE PATCH 1 PATCH REMOVE (21:39)
[2025-02-19] MEDS: MELATONIN 5 MG PO (21:39)
[2025-02-19 23:30] VITALS: BP 123/58
[2025-02-20] MEDS: ROXICODONE 5 MG PO ×3 (00:59→16:16)
[2025-02-20] MEDS: MORPHINE SULFATE 2 MG IV ×4 (02:32→23:18)
--- NOTE | 2025-02-20 05:04 | PTCARENOTE ---
Pt noted with drainage on sacral and b/l buttock dressings. Initially refused wound care, stating pain when turning. This RN educated pt on the importance of keeping dressings clean, dry, and intact to prevent infection. Pt verbalized understanding
and agreed to dressing change. Pt also refusing turns at certain times during the night. Education provided regarding the importance of turning every two hours to prevent further skin breakdown; pt verbalized understanding but continues to refuse
turning intermittently. Plan of care ongoing.
[2025-02-20 06:14] LABS: Blood Urea Nitrogen 7 mg/dl (7-17); Calcium 8.1 mg/dl (8.4-10.2); Carbon Dioxide 32 mmol/L (22-30); Chloride 99 mmol/L (98-107); Estimated Creatinine Clearance 59 ml/min; Glucose 88 mg/dl (70-99); Potassium 4.5 mmol/L (3.5-5.1); Sodium 131 mmol/L (135-145); eGFR > 60.00
[2025-02-20 07:00] VITALS: BP 132/68
[2025-02-20] MEDS: DAKIN'S SOLUTION 0.125% 1/4 STRENGTH 473 ML TOPICAL (08:35)
[2025-02-20] MEDS: SODIUM CHLORIDE 1 GRAM PO ×2 (08:39→21:05)
[2025-02-20] MEDS: MIRALAX 17 GRAMS PO (08:39)
[2025-02-20] MEDS: SANTYL OINTMENT 1 APPLIC TOPICAL (08:39)
[2025-02-20] MEDS: SENOKOT 8.6 MG PO ×2 (08:40→21:05)
[2025-02-20] MEDS: NICODERM TRANSDERMAL 14 MG TRANSDERM (08:40)
--- NOTE | 2025-02-20 11:35 | W.PN.HOSP.TC ---
Today's Communication/Plan
-
Monitor sodium. Discharge plan
Assessment / Plan
Assessment / Plan
Physical exam:
General: Well Developed, Well Nourished and No Apparent Distress
HEENT: Significant ecchymosis of left periorbital. Normocephalic, traumatic and Moist Mucous Membranes
Respiratory: Clear to Auscultation; Negative Wheezes, Rales or Rhonchi
Cardiac: Regular Rhythm and S1/S2
GI: Soft, Nontender and Nondistended
Musculoskeletal: Tenderness pelvic area. No Clubbing, No Cyanosis and No Edema. Wounds present
Neuro: Awake, Alert and Oriented, no neurological deficit
Psych: Calm
A/P:
PLAN:
#Hyponatremia--> today sodium improved up to 131
Nephrology consult appreciated
Continue to trend sodium
Checking basic hyponatremia workup and normal TSH and cortisol level. Urine sodium 73, urine osmolality 278
Continue fluid oral restriction
Continue salt tablet
Trend sodium
# Mechanical fall with left inferior pubic rami fracture
- Tylenol, morphine for pain. Add Oxy as needed
-Wound care eval
- PT OT recommends skilled rehab
- updated daughter over the phone yesterday
#Skin soft tissue
Traumatic rhabdomyolysis
Unstageable sacral pressure injury
Unstageable R ischial pressure injury
DTI L ischium
R heel DTI
Back stage 2 pressure injury
L hip stage 1, probable deep tissue injury
#Underweight
-Nutritional support
# Left periorbital ecchymosis
- No symptoms
- CT head negative
#Hypokalemia
Repleted
# Acute rhabdomyolysis
- CK 30,00--> down to 760
-Leukocytosis
- Off IV fluids
# Presumably chronic anemia with some acute component or dilutional
- Hemoglobin stable
Smoker
- Nicotine patch
Full code
DVT prophylaxis�SCDs
Total time spent on today's encounter was 35 minutes which included time spent in counseling the patient/family regarding diagnosis and treatment plan as listed above, goals of care, and symptom management. Case was discussed with nursing staff,
specialists, and care coordinators/case management. All labs and imaging personally reviewed by me. Remainder the time spent in detailed review of previous records, lab data, imaging, and other medical provider documentation.
Anticipated Discharge: Within 24 hours
Subjective/Interval History
-
Date of Service: February 20, 2025
Patient weak overall. Pain manageable. Sodium improving
Objective Data
-
Labs:
Laboratory Results
02/20/25
05:30
Sodium 131 L
Potassium 4.5
Chloride 99
Carbon Dioxide 32 H
BUN 7
Creatinine 0.6
Glucose 88
Calcium 8.1 L
Vital Signs:
Vital Signs
Temp Pulse Resp BP Pulse Ox
98.4 F 95 16 132/68 94
02/20/25 07:00 02/20/25 07:00 02/20/25 07:00 02/20/25 07:00 02/20/25 07:00
I&O
02/19/25 02/20/25 02/21/25
06:59 06:59 06:59
Intake Total 620 / 620 720 / 720
Balance 620 / 620 720 / 720
[2025-02-20 12:45] VITALS: BP 125/81; BP 138/84; PULSE 109; O2SAT 96
--- NOTE | 2025-02-20 14:07 | W.PN.NEPH.PH ---
Today's Communication / Plan
-
Sodium 131 will sign off okay for discharge from renal standpoint from a sodium perspective
Assessment/Plan
-
Assessment
Fall
Anemia
Hyponatremia
Relative hypotension
Smoker
Plan
Check urine studies
Maintain mild fluid restriction
Follow BMP
Sodium better 131
Will sign off
-
-
Date of Service: February 20, 2025
CC / HPI / ROS
-
No chest pain or shortness of breath
Labs
-
Labs:
WBC 9.6 10^3/uL (4.8-10.8) 02/17/25 05:26
RBC 2.52 10^6/uL (4.20-5.40) L 02/17/25 05:26
Hgb 9.7 g/dL (12.0-16.0) L 02/19/25 06:12
Hct 27.8 % (37.0-47.0) L 02/19/25 06:12
Plt Count 183 10^3/uL (130-400) D 02/17/25 05:26
Sodium 131 mmol/L (135-145) L 02/20/25 05:30
Potassium 4.5 mmol/L (3.5-5.1) 02/20/25 05:30
Chloride 99 mmol/L (98-107) 02/20/25 05:30
Carbon Dioxide 32 mmol/L (22-30) H 02/20/25 05:30
BUN 7 mg/dl (7-17) 02/20/25 05:30
Creatinine 0.6 mg/dL (0.6-1.0) 02/20/25 05:30
eGFR > 60.00 02/20/25 05:30
Glucose 88 mg/dl (70-99) 02/20/25 05:30
Calcium 8.1 mg/dl (8.4-10.2) L 02/20/25 05:30
Albumin 2.5 g/dl (3.5-5.0) L 02/16/25 05:43
Physical Exam
-
Vital Signs:
Vital Signs
Temp Pulse Resp BP Pulse Ox
98.4 F 95 16 132/68 94
02/20/25 07:00 02/20/25 07:00 02/20/25 07:00 02/20/25 07:00 02/20/25 07:00
[2025-02-20 15:00] VITALS: BP 117/45
[2025-02-20] MEDS: MELATONIN 5 MG PO (21:05)
[2025-02-20] MEDS: REMOVE NICOTINE PATCH 1 PATCH REMOVE (21:06)
[2025-02-20 23:09] VITALS: BP 125/55
[2025-02-21] MEDS: MORPHINE SULFATE 2 MG IV ×3 (05:57→18:10)
[2025-02-21 07:54] LABS: Hematocrit 29.9 % (37.0-47.0); Hemoglobin 9.9 g/dL (12.0-16.0)
[2025-02-21 07:59] VITALS: BP 117/58
[2025-02-21 08:18] LABS: Blood Urea Nitrogen 6 mg/dl (7-17); Calcium 8.2 mg/dl (8.4-10.2); Carbon Dioxide 27 mmol/L (22-30); Chloride 99 mmol/L (98-107); Estimated Creatinine Clearance 59 ml/min; Glucose 83 mg/dl (70-99); Potassium 4.2 mmol/L (3.5-5.1); Sodium 128 mmol/L (135-145); eGFR > 60.00
[2025-02-21] MEDS: DAKIN'S SOLUTION 0.125% 1/4 STRENGTH 473 ML TOPICAL (08:30)
[2025-02-21] MEDS: MIRALAX 17 GRAMS PO (08:35)
[2025-02-21] MEDS: SODIUM CHLORIDE 1 GRAM PO ×2 (08:36→20:02)
[2025-02-21] MEDS: SANTYL OINTMENT 1 APPLIC TOPICAL (08:36)
[2025-02-21] MEDS: SENOKOT 8.6 MG PO ×2 (08:36→20:02)
[2025-02-21] MEDS: TYLENOL 650 MG PO (08:36)
[2025-02-21] MEDS: NICODERM TRANSDERMAL 14 MG TRANSDERM (08:36)
[2025-02-21] MEDS: ROXICODONE 5 MG PO ×2 (09:37→21:09)
--- NOTE | 2025-02-21 09:37 | W.PN.HOSP.TC ---
Today's Communication/Plan
-
Continue PT OT. Fluid restriction. Pain control
Assessment / Plan
Assessment / Plan
Physical exam:
General: Well Developed, Well Nourished and No Apparent Distress
HEENT: Significant ecchymosis of left periorbital. Normocephalic, traumatic and Moist Mucous Membranes
Respiratory: Clear to Auscultation; Negative Wheezes, Rales or Rhonchi
Cardiac: Regular Rhythm and S1/S2
GI: Soft, Nontender and Nondistended
Musculoskeletal: Tenderness pelvic area. No Clubbing, No Cyanosis and No Edema. Wounds present
Neuro: Awake, Alert and Oriented, no neurological deficit
Psych: Calm
A/P:
PLAN:
# Mechanical fall with left inferior pubic rami fracture
- Tylenol, morphine for pain. Add Oxy as needed
-Wound care eval
- PT OT recommends skilled rehab
- updated daughter at bedside today
- Patient is unsafe to go home at the moment. Discussed with patient and daughter at bedside. Discussed with correctional counselor/case manager as well discharge disposition. She cannot go home at the moment unless she has some improvement in her ability to move
around and take care of by herself so we will reevaluate over the next 24 to 48 hours.
#Hyponatremia
Sodium fluctuates-today sodium 128
Nephrology consult appreciated
Continue to trend sodium
Checking basic hyponatremia workup and normal TSH and cortisol level. Urine sodium 73, urine osmolality 278
Continue fluid oral restriction
Continue salt tablet
Trend sodium
#Skin soft tissue
Traumatic rhabdomyolysis
Unstageable sacral pressure injury
Unstageable R ischial pressure injury
DTI L ischium
R heel DTI
Back stage 2 pressure injury
L hip stage 1, probable deep tissue injury
#Underweight
-Nutritional support
# Left periorbital ecchymosis
- No symptoms
- CT head negative
#Hypokalemia
Repleted
# Acute rhabdomyolysis
- CK 30,00--> down to 85
-Leukocytosis
- Off IV fluids
# Presumably chronic anemia with some acute component or dilutional
- Hemoglobin stable although small drift down. Today hemoglobin 9.9
Smoker
- Nicotine patch
Full code
DVT prophylaxis�SCDs
Total time spent on today's encounter was 52 minutes which included time spent in counseling the patient/family regarding diagnosis and treatment plan as listed above, goals of care, and symptom management. Case was discussed with nursing staff,
specialists, and care coordinators/case management. All labs and imaging personally reviewed by me. Remainder the time spent in detailed review of previous records, lab data, imaging, and other medical provider documentation. More than 50% of the
time spent on counseling and coordination with patient, family, and correctional counselor/case manager.
Anticipated Discharge: > 48 hours
Subjective/Interval History
-
Date of Service: February 21, 2025
Patient states pain is manageable but still ongoing. She is also very weak and unable to get out of bed without assistance. Afebrile
Objective Data
-
Labs:
Laboratory Results
02/21/25
06:40
Hgb 9.9 L
Hct 29.9 L
Sodium 128 L
Potassium 4.2
Chloride 99
Carbon Dioxide 27
BUN 6 L
Creatinine 0.5 L
Glucose 83
Calcium 8.2 L
Vital Signs:
Vital Signs
Temp Pulse Resp BP Pulse Ox
98.2 F 88 18 117/58 93
02/21/25 07:59 02/21/25 07:59 02/21/25 07:59 02/21/25 07:59 02/21/25 07:59
I&O
02/20/25 02/21/25 02/22/25
06:59 06:59 06:59
Intake Total 720 / 720 240 / 240
Balance 720 / 720 240 / 240
[2025-02-21] MEDS: FLUSH (NSS) 2 FLUSH IV (11:52)
[2025-02-21 15:39] VITALS: BP 120/64
[2025-02-21] MEDS: MELATONIN 5 MG PO (21:08)
[2025-02-21] MEDS: REMOVE NICOTINE PATCH 1 PATCH REMOVE (21:10)
[2025-02-21 23:00] VITALS: BP 124/68
[2025-02-22] MEDS: MORPHINE SULFATE 2 MG IV ×3 (06:05→20:16)
[2025-02-22] MEDS: TYLENOL 650 MG PO ×2 (06:57→13:00)
[2025-02-22 07:31] VITALS: BP 132/60
[2025-02-22] MEDS: MIRALAX 17 GRAMS PO (08:14)
[2025-02-22] MEDS: NICODERM TRANSDERMAL 14 MG TRANSDERM (08:14)
[2025-02-22] MEDS: SANTYL OINTMENT 1 APPLIC TOPICAL (08:15)
[2025-02-22] MEDS: SODIUM CHLORIDE 1 GRAM PO ×2 (08:15→20:16)
[2025-02-22] MEDS: ROXICODONE 5 MG PO ×2 (08:15→17:15)
[2025-02-22] MEDS: SENOKOT 8.6 MG PO ×2 (08:15→20:16)
[2025-02-22] MEDS: DAKIN'S SOLUTION 0.125% 1/4 STRENGTH 473 ML TOPICAL (08:15)
[2025-02-22 10:36] LABS: Blood Urea Nitrogen 7 mg/dl (7-17); Calcium 8.1 mg/dl (8.4-10.2); Carbon Dioxide 27 mmol/L (22-30); Chloride 99 mmol/L (98-107); Estimated Creatinine Clearance 59 ml/min; Glucose 74 mg/dl (70-99); Potassium 4.0 mmol/L (3.5-5.1); Sodium 128 mmol/L (135-145); eGFR > 60.00
[2025-02-22 11:44] LABS: Hematocrit 30.7 % (37.0-47.0); Hemoglobin 9.9 g/dL (12.0-16.0); Mean Corp Hgb Conc. 32.2 g/dL (33.0-37.0); Mean Corpuscular Volume 114.1 fL (81.0-99.0); Nucleated Red Blood Cells % 0 %; Platelet Count 413 10^3/uL (130-400); Red Cell Dist. Width 13.6 % (11.5-14.5)
--- NOTE | 2025-02-22 13:52 | W.PN.HOSP.TC ---
Today's Communication/Plan
-
Monitor sodium. PT OT. Discharge planning
Assessment / Plan
Assessment / Plan
Physical exam:
General: Acutely ill
HEENT: Significant ecchymosis of left periorbital. Normocephalic, traumatic and Moist Mucous Membranes
Respiratory: Clear to Auscultation; Negative Wheezes, Rales or Rhonchi
Cardiac: Regular Rhythm and S1/S2
GI: Soft, Nontender and Nondistended
Musculoskeletal: Tenderness pelvic area. No Clubbing, No Cyanosis and No Edema. Wounds present
Neuro: Awake, Alert and Oriented, no neurological deficit, but generalized weakness
Psych: Calm
A/P:
PLAN:
# Mechanical fall with left inferior pubic rami fracture
- Tylenol, morphine for pain. Added Oxy as needed
-Wound care eval
- PT OT recommends skilled rehab
- updated daughter at bedside yesterday
- Patient is unsafe to go home at the moment. Discussed with patient and daughter at bedside. Discussed with senior case manager as well discharge disposition. She cannot go home at the moment unless she has some improvement in her ability to move
around and take care of by herself so we will reevaluate over the next 24 to 48 hours.
- Continue PT OT
- Discussed with senior case manager in person today and aiming for SNF but there is some barriers in terms of insurance and they will look into that.
#Hyponatremia
Sodium fluctuates-today sodium 128
Nephrology consult appreciated
Continue to trend sodium
Checking basic hyponatremia workup and normal TSH and cortisol level. Urine sodium 73, urine osmolality 278
Continue fluid oral restriction
Continue salt tablet
Trend sodium
#Skin soft tissue
Traumatic rhabdomyolysis
Unstageable sacral pressure injury
Unstageable R ischial pressure injury
DTI L ischium
R heel DTI
Back stage 2 pressure injury
L hip stage 1, probable deep tissue injury
Continue pain control
#Underweight
-Nutritional support
# Left periorbital ecchymosis
- No symptoms
- CT head negative
#Hypokalemia
Repleted
# Acute rhabdomyolysis
- CK 30,00--> down to 85
-Leukocytosis
- Off IV fluids
# Presumably chronic anemia with some acute component or dilutional
- Hemoglobin stable although small drift down. Today hemoglobin 9.9
Smoker
- Nicotine patch
Full code
DVT prophylaxis�SCDs
Total time spent on today's encounter was 36 minutes which included time spent in counseling the patient/family regarding diagnosis and treatment plan as listed above, goals of care, and symptom management. Case was discussed with nursing staff,
specialists, and care coordinators/case management. All labs and imaging personally reviewed by me. Remainder the time spent in detailed review of previous records, lab data, imaging, and other medical provider documentation. More than 50% of the
time spent on counseling and coordination with patient, family, and senior case manager.
Anticipated Discharge: 24 - 48 hours
Subjective/Interval History
-
Date of Service: February 22, 2025
Patient still very weak overall although she states that she is moving a bit more. Afebrile.
Objective Data
-
Labs:
Laboratory Results
02/22/25
06:58
WBC 9.4
Hgb 9.9 L
Hct 30.7 L
Plt Count 413 H D
Sodium 128 L
Potassium 4.0
Chloride 99
Carbon Dioxide 27
BUN 7
Creatinine 0.5 L
Glucose 74
Calcium 8.1 L
Vital Signs:
Vital Signs
Temp Pulse Resp BP Pulse Ox
98.4 F 92 20 132/60 93
02/22/25 07:31 02/22/25 07:31 02/22/25 07:31 02/22/25 07:31 02/22/25 07:31
I&O
02/21/25 02/22/25 02/23/25
06:59 06:59 06:59
Intake Total 240 / 240 570 / 570
Balance 240 / 240 570 / 570
[2025-02-22 16:08] VITALS: BP 147/66
[2025-02-22] MEDS: MELATONIN 5 MG PO (21:06)
[2025-02-22] MEDS: REMOVE NICOTINE PATCH 1 PATCH REMOVE (21:06)
[2025-02-22 23:48] VITALS: BP 110/67
[2025-02-23] MEDS: ROXICODONE 5 MG PO ×4 (02:03→23:44)
[2025-02-23 07:44] VITALS: BP 150/70
[2025-02-23] MEDS: MORPHINE SULFATE 2 MG IV ×3 (07:50→21:31)
[2025-02-23] MEDS: NICODERM TRANSDERMAL 14 MG TRANSDERM (07:52)
[2025-02-23] MEDS: SENOKOT 8.6 MG PO ×2 (07:52→21:25)
[2025-02-23] MEDS: MIRALAX 17 GRAMS PO ×2 (07:52→21:24)
[2025-02-23] MEDS: SANTYL OINTMENT 1 APPLIC TOPICAL ×2 (07:54→21:25)
[2025-02-23] MEDS: DAKIN'S SOLUTION 0.125% 1/4 STRENGTH 473 ML TOPICAL ×2 (07:55→21:27)
[2025-02-23] MEDS: SODIUM CHLORIDE 1 GRAM PO ×2 (07:55→21:26)
[2025-02-23 08:33] LABS: Blood Urea Nitrogen 5 mg/dl (7-17); Calcium 8.3 mg/dl (8.4-10.2); Carbon Dioxide 28 mmol/L (22-30); Chloride 100 mmol/L (98-107); Estimated Creatinine Clearance 59 ml/min; Glucose 89 mg/dl (70-99); Potassium 4.2 mmol/L (3.5-5.1); Sodium 128 mmol/L (135-145); eGFR > 60.00
--- NOTE | 2025-02-23 09:58 | WOUNDNOTE ---
WO RN note: Patient continues with pain with turning/wound care. She was medicated for pain this am. Sacrum and bilateral ischial wound care done. Ischial ulcers yellow/colin necrotic. Sacral ulcer yellow/colin necrotic with pink wound edges. +Necrotic
odor. Minimal local erythema. L heel stage 1 pressure injury. R heel DTI. L lateral knee deep dermal ulcer (deep dermal stage 2 vs abrasion). Patient reports 90% intake of her breakfast. Patient is on a air overlay mattress and has an air chair
cushion. Heel foam dressings changed. L lateral knee foam dressing changed. Patient turned to L semi side lying position with help from RN student Whitney. Tru[employer]ue lite boots applied. Discussed with RN Marya who confirmed patient is getting
supplemental pudding. [place] texted Dr. Muñiz sacral and ischial wound pictures noting sacral/ischial wounds have demarcated and have yellow/colin necrosis; asked if surgeon evaluation indicated for debridement and defer to hospitalist if Xray
indicated to r/t osteomyelitis. WBC normal yesterday. Dr. Muñiz approved increasing wound care to bid. Will follow as needed.
[2025-02-23 11:18] VITALS: BP 147/77; PULSE 101; PULSE 98; O2SAT 97; O2SAT 99
--- NOTE | 2025-02-23 12:07 | CM ---
Addendum entered by Yary Cai 02/23/25 15:43:
Per [facility] event representative patient does not qualify for [facility] but she will review and call to patient daughter to review options.
Original Note:
Patient seen at bedside on . Patient states she is concerned about her dogs at home. Patient daughter is here for another week from [place]. Patient would like to talk to [facility] and she indicated that she wants to go home with [facility] but she is aware
that she has to also sign up for [facility]. Patient with many concerns about insurance. CM provided list of SNF options and will call to [facility] and request her to follow for supports. CM will continue to follow for discharge planning needs.
Plan; home with [facility] vs SNF; need [facility] and [facility]
--- NOTE | 2025-02-23 14:06 | W.PN.HOSP.TC ---
Today's Communication/Plan
-
CT Pelvis
follow up surgery recs
fluid restriction, monitor sodium
pain control
PT/OT - continued dispo discussions
Assessment / Plan
Assessment / Plan
A/P:
PLAN:
# Mechanical fall with left inferior pubic rami fracture
- Tylenol, Oxycodone PRN
- PT/OT recommending SNF, patient prefers to go home.
Sacral and ischemial ulcers
-appreciate wound care
-Surgical consult for debridement, CT Pelvis recommended - ordered
Hyponatremia
-appreciate renal
-increase fluid restriction
-continue salt tablet
Trend sodium
#Skin soft tissue
-Traumatic rhabdomyolysis
-Unstageable sacral pressure injury
-Unstageable R ischial pressure injury
-DTI L ischium
-R heel DTI
- stage 2 pressure injury
-L hip stage 1, probable deep tissue injury
-Continue pain control
#Underweight
-Nutritional support
# Left periorbital ecchymosis
- No symptoms
- CT head negative
#Hypokalemia
Repleted
# Acute rhabdomyolysis
- CK 30,00--> down to 85
-Leukocytosis
- Off IV fluids
# Presumably chronic anemia with some acute component or dilutional
- Hemoglobin stable although small drift down. Today hemoglobin 9.9
Smoker
- Nicotine patch
Full code
DVT prophylaxis�SCDs
51 minute spent on patient care
Anticipated Discharge: 24 - 48 hours
Subjective/Interval History
-
Date of Service: February 23, 2025
pain in left buttocks region, especially when standing
states she is eating okay and drinking less water
Objective Data
-
Labs:
Laboratory Results
02/23/25
07:35
Sodium 128 L
Potassium 4.2
Chloride 100
Carbon Dioxide 28
BUN 5 L
Creatinine 0.5 L
Glucose 89
Calcium 8.3 L
Vital Signs:
Vital Signs
Temp Pulse Resp BP Pulse Ox
98.2 F 92 18 150/70 95
02/23/25 07:44 02/23/25 07:44 02/23/25 07:44 02/23/25 07:44 02/23/25 09:32
I&O
02/22/25 02/23/25 02/24/25
06:59 06:59 06:59
Intake Total 570 / 570 1260 / 1260
Balance 570 / 570 1260 / 1260
Review of Systems
-
History Source: Patient
All other systems: Reviewed and negative
Physical Exam
-
General: No Apparent Distress
HEENT: PERRLA and Other (left periorbital ecchymosis )
Respiratory: Clear to Auscultation; Negative Wheezes
Cardiac: S1/S2
GI: Soft and Nontender
Skin: Warm, Dry and Other (please see wound care note for photos of sacral wound )
Neuro: AO x 3
Psych: Calm
Data Reviewed
-
Diagnostic Radiology: Report Reviewed by me
Labs: Labs Reviewed by me
[2025-02-23 15:00] VITALS: BP 141/70
--- NOTE | 2025-02-23 17:10 | CON.GS ---
Consultation
-
Date/Time Consultation Requested: 02/23/2025 3 PM
Date/Time Consultation Performed: 02/23/2025 4 PM
Requesting Provider: Dr. Muñiz
Performing Provider: Dr. Hart
Reason for Consultation: Sacral wounds
Medical History
-
Chief Complaint: Sacral wounds
History of Present Illness:
This is a 69-year-old female status post recent mechanical fall with left inferior pubic rami fracture was also noted to have sacral wounds for which general surgery was consulted and recommended CT and imaging. Patient states that after she fell
she was trying to get her dogs in and out of the house so 'scooted on her butt' for about a day before the pain became unbearable. The patient denies staying in any 1 position for a prolonged period of time, previous wounds in her sacrum, fever,
Chest Pain, Shortness Of Breath, Nausea, Vomiting, changes in urinary and bowel habits.
Past Medical History
Past Medical History: None
Past Surgical History: None
Social History
Tobacco: Smoker
Alcohol: Daily
Living: Alone
Family History
Family History: Reviewed & Not Pertinent
Allergies / Home Medications
Allergy/AdvReac Type Severity Reaction Status Date / Time
No Known Allergies Allergy Unverified 02/15/25 14:15
�Medication �Instructions �Recorded �Confirmed �Type
No Meds [No Current Medications] 02/15/25 02/15/25 History
Review of Systems
-
All other systems: Negative unless noted
A 10 point review of systems was completed, and was negative except as per HPI.
Physical Exam
Vital Signs
Temp Pulse Resp BP Pulse Ox
98.5 F 115 17 141/70 97
02/23/25 15:00 02/23/25 15:00 02/23/25 15:00 02/23/25 15:00 02/23/25 15:00
Body Mass Index (BMI) 15.2
Lab Results
02/22/25 06:58
02/23/25 07:35
WBC 9.4 10^3/uL (4.8-10.8) 02/22/25 06:58
Hgb 9.9 g/dL (12.0-16.0) L 02/22/25 06:58
Hct 30.7 % (37.0-47.0) L 02/22/25 06:58
Plt Count 413 10^3/uL (130-400) H D 02/22/25 06:58
Abs Immat Gran (auto) 0.1 10^3/uL (0-0.05) H 02/22/25 06:58
Neutrophils % 79.1 % (42.2-75.2) H 02/22/25 06:58
Physical Exam
Skin: Other (She has large but shallow wounds with dry gangrene on her sacrum and ischium respectively. There is a foul odor but no fluctuance or discharge.)
Neuro: AO x 3
Data Reviewed
-
CT Scan: Image Personally Visualized and interpreted, Report Reviewed by me, Discussed with Physician and Discussed with Patient
Labs: Labs Reviewed by me and Discussed with Patient
Total Time Spent with Patient (in minutes): 30
Assessment / Plan
-
This is a 69-year-old female who presents with traumatic sacral wounds consistent with dry gangrene. Physical exam and CT imaging confirm no underlying abscess.
Wound care: Would cover all wounds with Santyl followed by an occlusive dressing and changed twice daily.
Bedside debridement was also discussed but given her tenderness I am not sure she would be able to tolerate it. Will proceed with nonoperative management for now before considering operative debridement under anesthesia
no role for antibiotics at this time.
Increase protein intake
Smoking and drinking cessation
General surgery will sign off for now, please call with any questions or concerns.
Patient to follow-up with me as an outpatient in 3 to 4 weeks.
[2025-02-23] MEDS: REMOVE NICOTINE PATCH 1 PATCH REMOVE (21:26)
[2025-02-23] MEDS: MELATONIN 5 MG PO (21:26)
[2025-02-23 23:14] VITALS: BP 116/55
[2025-02-24 04:47] VITALS: BP 124/62
[2025-02-24] MEDS: MORPHINE SULFATE 2 MG IV ×2 (04:48→10:51)
[2025-02-24 05:54] LABS: Hematocrit 28.3 % (37.0-47.0); Hemoglobin 9.5 g/dL (12.0-16.0); Mean Corp Hgb Conc. 33.6 g/dL (33.0-37.0); Mean Corpuscular Volume 108.0 fL (81.0-99.0); Platelet Count 447 10^3/uL (130-400); Red Cell Dist. Width 13.4 % (11.5-14.5)
[2025-02-24 06:18] LABS: Blood Urea Nitrogen 8 mg/dl (7-17); Calcium 8.3 mg/dl (8.4-10.2); Carbon Dioxide 31 mmol/L (22-30); Chloride 99 mmol/L (98-107); Estimated Creatinine Clearance 59 ml/min; Glucose 85 mg/dl (70-99); Magnesium 2.2 mg/dl (1.6-2.3); Potassium 4.3 mmol/L (3.5-5.1); Sodium 127 mmol/L (135-145); eGFR > 60.00
[2025-02-24 07:00] VITALS: BP 120/61
[2025-02-24] MEDS: SENOKOT PO ×2 (07:47→21:30)
[2025-02-24] MEDS: MIRALAX PO ×2 (07:47→21:30)
[2025-02-24] MEDS: ROXICODONE 5 MG PO (08:10)
[2025-02-24] MEDS: SANTYL OINTMENT 1 APPLIC TOPICAL ×2 (08:11→21:31)
[2025-02-24] MEDS: NICODERM TRANSDERMAL 14 MG TRANSDERM (08:11)
[2025-02-24] MEDS: SODIUM CHLORIDE 1 GRAM PO ×2 (08:11→21:30)
[2025-02-24] MEDS: DAKIN'S SOLUTION 0.125% 1/4 STRENGTH 473 ML TOPICAL ×2 (08:12→21:31)
--- NOTE | 2025-02-24 12:04 | W.PN.HOSP.TC ---
Today's Communication/Plan
-
pain control
appreciate wound consult and GS
PT/OT recommending SNF, appreciate CM
follow up further Renal recs on low Na
Assessment / Plan
Assessment / Plan
Pelvis CT 02/15/25
IMPRESSION:
There is an irregularity along the left inferior pubic ramus which may represent a fracture.
Head CT 02/15/25
IMPRESSION:
There is an irregularity along the left inferior pubic ramus which may represent a fracture.
Pelvis CT 02/23/25
IMPRESSION: No focal abscess identified. Probable cellulitis about the gluteal cleft and buttocks bilaterally as described above. No bony destruction to suggest osteomyelitis.
Subacute left pelvic fractures.
Mild volume overload/third spacing.
Moderate fecal material throughout the colon. Findings concerning for fecal impaction.
PLAN:
# Mechanical fall with left inferior pubic rami fracture
-patient tripped over dog 5 days prior to presentation and was scooting on bottom to get around at home; presentation delayed because she doesn't have health insurance and was hopeful she would improve on her own
-make Tylenol standing
-Oxy 5 PRN moderate pain; 10 PRN severe pain
- PT/OT recommending SNF, patient prefers to go home but agreeable for SNF - she is looking into options, discussing with CM.
Rhabdomyolysis
-s/p IVF with normalization of CK, stable renal function
Unstageable sacral pressure injury
Unstageable R ischial pressure injury
DTI L ischium
R heel DTI
stage 2 pressure injury
-L hip stage 1, probable deep tissue injury
-CT pelvis without e/o osteo or abscess
-appreciate wound care and GS consulted. Per GS, conservative management first. Sound care orders placed. Patient will follow up as outpatient with GS.
Hyponatremia
-suspect SIADH 2/2 pain
-patient started on fluid restriction and salt tabs. Increase restriction to 1200cc/day on 02/23 but Na down to 127 this AM
-Asking Renal to reconsult, Samsca
Fecal Impaction seen on CT/Constipation
-since 02/23 patient has had multiple BM
Underweight
-Nutritional support
Left periorbital ecchymosis
- No symptoms
- CT head negative
Hypokalemia
Repleted
Presumably chronic anemia with some acute component or dilutional
Smoker
- Nicotine patch
Full code
DVT prophylaxis� start Lovenox subQ
51 minute spent on patient care
Anticipated Discharge: 24 - 48 hours
Subjective/Interval History
-
Date of Service: February 24, 2025
continues to have pain and diminished mobility
Objective Data
-
Labs:
Laboratory Results
02/24/25
05:31
WBC 9.2
Hgb 9.5 L
Hct 28.3 L
Plt Count 447 H
Sodium 127 L
Potassium 4.3
Chloride 99
Carbon Dioxide 31 H
BUN 8
Creatinine 0.6
Glucose 85
Calcium 8.3 L
Vital Signs:
Vital Signs
Temp Pulse Resp BP Pulse Ox
98.1 F 90 16 120/61 93
02/24/25 07:00 02/24/25 07:00 02/24/25 07:00 02/24/25 07:00 02/24/25 11:34
I&O
02/23/25 02/24/25 02/25/25
06:59 06:59 06:59
Intake Total 1260 / 1260 1050 / 1050
Balance 1260 / 1260 1050 / 1050
Review of Systems
-
History Source: Patient
All other systems: Reviewed and negative
Physical Exam
-
General: No Apparent Distress
HEENT: PERRLA
Respiratory: Clear to Auscultation; Negative Wheezes
Cardiac: Regular Rhythm and S1/S2
GI: Soft and Nontender
Musculoskeletal: No Edema
Skin: Warm and Dry; Negative Rash
Neuro: Awake, Alert, Oriented and AO x 3
Psych: Calm
Data Reviewed
-
Diagnostic Radiology: Report Reviewed by me
Labs: Labs Reviewed by me
[2025-02-24] MEDS: LOVENOX 30 MG SC (13:44)
[2025-02-24] MEDS: ROXICODONE 10 MG PO (14:14)
[2025-02-24 15:00] VITALS: BP 103/58
[2025-02-24 15:32] VITALS: BP 120/62; PULSE 121; O2SAT 97
[2025-02-24 15:34] VITALS: BP 120/62; PULSE 122; O2SAT 97
[2025-02-24] MEDS: TYLENOL 1000 MG PO ×2 (16:24→21:31)
--- NOTE | 2025-02-24 16:32 | CM ---
Spoke with patient in room .
PT indicates SNF. Pt has no insurance and will no payor she does not qualify for SNF.
Pt and daughter are working on Medicare application as it is open enrollment.
Pt does not qualify for Medicaid
Pt has wounds on body.
Will give patient [facility] handout
PLAN : Home follow up with [facility] if qualifies
.
--- NOTE | 2025-02-24 17:39 | W.PN.NEPH.PH ---
Addendum entered and electronically signed by Trish Nieves MD 02/24/25 22:17:
CT pelvis from 02/23 noted, third spacing , check bnp in am
consider lasix and decrease salt tab
Original Note:
Today's Communication / Plan
-
samsca
Assessment/Plan
-
Assessment
Fall
Anemia
Hyponatremia
Relative hypotension
Smoker
Plan:
reconsult for for persistent hyponatremia despite FR and salt tab
U osmo 399, u na 103
likely SIADH from pain
will dose samsca today
Follow BMP
-
-
Date of Service: February 24, 2025
CC / HPI / ROS
-
Chief Complaint:
HYponatremia
History of Present Illness:
sodium low at 127
hb stable at 9.5
Bp stable but tachy slightly
Review of Systems:
no cp or sob
loose BMs
pain fair control
out of bed with PT today
Labs
-
Labs:
WBC 9.2 10^3/uL (4.8-10.8) 02/24/25 05:31
RBC 2.62 10^6/uL (4.20-5.40) L 02/24/25 05:31
Hgb 9.5 g/dL (12.0-16.0) L 02/24/25 05:31
Hct 28.3 % (37.0-47.0) L 02/24/25 05:31
Plt Count 447 10^3/uL (130-400) H 02/24/25 05:31
Sodium 127 mmol/L (135-145) L 02/24/25 05:31
Potassium 4.3 mmol/L (3.5-5.1) 02/24/25 05:31
Chloride 99 mmol/L (98-107) 02/24/25 05:31
Carbon Dioxide 31 mmol/L (22-30) H 02/24/25 05:31
BUN 8 mg/dl (7-17) 02/24/25 05:31
Creatinine 0.6 mg/dL (0.6-1.0) 02/24/25 05:31
eGFR > 60.00 02/24/25 05:31
Glucose 85 mg/dl (70-99) 02/24/25 05:31
Calcium 8.3 mg/dl (8.4-10.2) L 02/24/25 05:31
Albumin 2.5 g/dl (3.5-5.0) L 02/16/25 05:43
Physical Exam
-
Vital Signs:
Vital Signs
Temp Pulse Resp BP Pulse Ox
98.8 F 119 18 103/58 96
02/24/25 15:00 02/24/25 15:00 02/24/25 15:00 02/24/25 15:00 02/24/25 15:00
Cardiovascular:: Regular rate and rhythm
Respiratory:: Bilateral: CTA
Lung Excursion:: Normal
Abdomen:: Nontender and Soft
Extremity Edema:: None: Bilateral:
Kaye Catheter: No
[2025-02-24] MEDS: SAMSCA 7.5 MG PO (18:05)
[2025-02-24] MEDS: MELATONIN 5 MG PO (21:30)
[2025-02-24] MEDS: REMOVE NICOTINE PATCH 1 PATCH REMOVE (21:31)
[2025-02-24 23:00] VITALS: BP 106/62
[2025-02-25] MEDS: ROXICODONE 5 MG PO ×3 (00:35→22:21)
--- NOTE | 2025-02-25 06:08 | W.PN.HOSP.TC ---
Today's Communication/Plan
-
Monitor Na
PT/OT
wound care
safe Discharge Planning
Assessment / Plan
Assessment / Plan
Physical Exam
General: No Apparent Distress
HEENT: PERRLA, Left periorbital ecchymosis
Respiratory: Clear to Auscultation; Negative Wheezes
Cardiac: Regular Rhythm and S1/S2
GI: Soft and Nontender
Musculoskeletal: No Edema
Skin: Warm and Dry; Negative Rash
Neuro: Awake, Alert, Oriented and AO x 3
Psych: Calm
Pelvis CT 02/15/25
IMPRESSION:
There is an irregularity along the left inferior pubic ramus which may represent a fracture.
Head CT 02/15/25
IMPRESSION:
No acute intracranial abnormality noted.
Pelvis CT 02/23/25
IMPRESSION: No focal abscess identified. Probable cellulitis about the gluteal cleft and buttocks bilaterally as described above. No bony destruction to suggest osteomyelitis.
Subacute left pelvic fractures.
Mild volume overload/third spacing.
Moderate fecal material throughout the colon. Findings concerning for fecal impaction.
69F uninsured hx Tobacco use here for mechanical w/ associate pelvic fracture and ambulatory dysfunction.
PLAN:
# Mechanical fall with left inferior pubic rami fracture
-patient tripped over dog 5 days prior to presentation and was scooting on bottom to get around at home; presentation delayed because she doesn't have health insurance and was hopeful she would improve on her own
-Tylenol 1000 mg TID
-Oxy 5 PRN moderate pain; 10 PRN severe pain
- PT/OT recommending SNF, patient prefers to go home but agreeable for SNF - she is looking into options, discussing with CM.
Rhabdomyolysis
-s/p IVF with normalization of CK, stable renal function
Unstageable sacral pressure injury
Unstageable R ischial pressure injury
DTI L ischium
R heel DTI
stage 2 pressure injury
-L hip stage 1, probable deep tissue injury
-CT pelvis without e/o osteo or abscess
-appreciate wound care and GS consulted. Per GS, conservative management first. Patient will follow up as outpatient with GS.
Hyponatremia
-suspect SIADH 2/2 pain
-patient started on fluid restriction and salt tabs. Increase restriction to 1200cc/day
-Renal eval appreciated, Na since improved with Samsca 02/24
Fecal Impaction seen on CT/Constipation
-since 02/23 patient has had multiple BM
Underweight
-Nutritional support
Left periorbital ecchymosis
- CT head negative
Hypokalemia
Repleted
Anemia
-H&H stable
Smoker
- Nicotine patch
Full code
DVT prophylaxis� Lovenox
Discussed with patient and patient's daughter Mary at bedside.
I spent a total of 40 minutes with the patient or on the floor. More than 50% of this time involved counseling and coordination of care.
Anticipated Discharge: 24 - 48 hours
Subjective/Interval History
-
Date of Service: February 25, 2025
No acute distress, sitting up comfortably in chair, reports resolution constipation. Endorses frequent urination following samsca yesterday. Otherwise reports feeling well. Daughter Mary present during evaluation.
Objective Data
-
Vital Signs:
Vital Signs
Temp Pulse Resp BP Pulse Ox
98.3 F 83 16 106/62 94
02/24/25 23:00 02/24/25 23:00 02/24/25 23:00 02/24/25 23:00 02/24/25 23:00
I&O
02/23/25 02/24/25 02/25/25
06:59 06:59 06:59
Intake Total 1260 / 1260 1050 / 1050 1030 / 1030
Balance 1260 / 1260 1050 / 1050 1030 / 1030
[2025-02-25 07:43] VITALS: BP 127/54
[2025-02-25] MEDS: DAKIN'S SOLUTION 0.125% 1/4 STRENGTH 473 ML TOPICAL ×2 (08:45→20:17)
[2025-02-25] MEDS: NICODERM TRANSDERMAL 14 MG TRANSDERM (08:46)
[2025-02-25] MEDS: SANTYL OINTMENT 1 APPLIC TOPICAL ×2 (08:46→20:17)
[2025-02-25] MEDS: TYLENOL 1000 MG PO ×3 (08:46→22:22)
[2025-02-25] MEDS: SODIUM CHLORIDE 1 GRAM PO (08:46)
[2025-02-25] MEDS: MIRALAX PO ×2 (08:54→20:15)
[2025-02-25] MEDS: SENOKOT PO ×2 (08:54→20:15)
[2025-02-25 11:36] LABS: Blood Urea Nitrogen 9 mg/dl (7-17); Calcium 8.7 mg/dl (8.4-10.2); Carbon Dioxide 32 mmol/L (22-30); Chloride 101 mmol/L (98-107); Estimated Creatinine Clearance 59 ml/min; Glucose 105 mg/dl (70-99); Potassium 4.7 mmol/L (3.5-5.1); Sodium 133 mmol/L (135-145); eGFR > 60.00
[2025-02-25 13:00] VITALS: BP 134/71; PULSE 106; O2SAT 97
[2025-02-25 14:00] VITALS: BP 134/71; PULSE 107; O2SAT 95
--- NOTE | 2025-02-25 14:32 | CM ---
Addendum entered by Linda Martinez RN 02/25/25 16:30:
Spoke with Maria R Hernandez in room .She requested rehab referral for private pay.PAc data given .
Referral placed for [facility] [place].
Original Note:
HRSI checked and patient does not have insurance.
PT indicate SNF.
Pt has no payor for rehab .
Pt given [facility] information to check if she qualifies .
PLAN Home no anticipated need
[2025-02-25 14:50] VITALS: BP 119/60
--- NOTE | 2025-02-25 15:55 | W.PN.NEPH.PH ---
Today's Communication / Plan
-
Fluid restrict okay for discharge from renal standpoint
Assessment/Plan
-
Assessment
Fall
Anemia
Hyponatremia
Relative hypotension
Smoker
Plan:
reconsult for for persistent hyponatremia despite FR and salt tab
U osmo 399, u na 103
likely SIADH from pain
Sodium improved with Samsca
Discussed with the daughter at bedside she needs to restrict her fluid going forward.
Follow BMP
-
-
Date of Service: February 25, 2025
CC / HPI / ROS
-
Chief Complaint:
HYponatremia
History of Present Illness:
sodium low at 127
hb stable at 9.5
Bp stable but tachy slightly
Review of Systems:
no cp or sob
loose BMs
pain fair control
out of bed with PT today
Labs
-
Labs:
WBC 9.2 10^3/uL (4.8-10.8) 02/24/25 05:31
RBC 2.62 10^6/uL (4.20-5.40) L 02/24/25 05:31
Hgb 9.5 g/dL (12.0-16.0) L 02/24/25 05:31
Hct 28.3 % (37.0-47.0) L 02/24/25 05:31
Plt Count 447 10^3/uL (130-400) H 02/24/25 05:31
Sodium 133 mmol/L (135-145) L 02/25/25 10:58
Potassium 4.7 mmol/L (3.5-5.1) 02/25/25 10:58
Chloride 101 mmol/L (98-107) 02/25/25 10:58
Carbon Dioxide 32 mmol/L (22-30) H 02/25/25 10:58
BUN 9 mg/dl (7-17) 02/25/25 10:58
Creatinine 0.6 mg/dL (0.6-1.0) 02/25/25 10:58
eGFR > 60.00 02/25/25 10:58
Glucose 105 mg/dl (70-99) H 02/25/25 10:58
Calcium 8.7 mg/dl (8.4-10.2) 02/25/25 10:58
Nwf-[id number]-Bqwwlihvtaz Pept 660 pg/ml 02/25/25 05:19
Albumin 2.5 g/dl (3.5-5.0) L 02/16/25 05:43
Physical Exam
-
Vital Signs:
Vital Signs
Temp Pulse Resp BP Pulse Ox
97.9 F 109 17 119/60 98
02/25/25 14:50 02/25/25 14:50 02/25/25 14:50 02/25/25 14:50 02/25/25 14:50
Cardiovascular:: Regular rate and rhythm
Respiratory:: Bilateral: CTA
Lung Excursion:: Normal
Abdomen:: Nontender and Soft
Extremity Edema:: None: Bilateral:
Kaye Catheter: No
[2025-02-25] MEDS: LOVENOX 30 MG SC (17:32)
[2025-02-25] MEDS: MELATONIN 5 MG PO (22:22)
[2025-02-25] MEDS: REMOVE NICOTINE PATCH 1 PATCH REMOVE (22:22)
[2025-02-25 23:50] VITALS: BP 123/57
[2025-02-26] MEDS: ROXICODONE 5 MG PO ×4 (03:37→20:51)
[2025-02-26 06:13] LABS: Blood Urea Nitrogen 10 mg/dl (7-17); Calcium 8.1 mg/dl (8.4-10.2); Carbon Dioxide 29 mmol/L (22-30); Chloride 104 mmol/L (98-107); Estimated Creatinine Clearance 59 ml/min; Glucose 83 mg/dl (70-99); Potassium 4.1 mmol/L (3.5-5.1); Sodium 135 mmol/L (135-145); eGFR > 60.00
--- NOTE | 2025-02-26 07:42 | W.PN.HOSP.TC ---
Today's Communication/Plan
-
Monitor Na
possible discharge tomorrow
Assessment / Plan
Assessment / Plan
Physical Exam
General: No Apparent Distress
HEENT: PERRLA, Left periorbital ecchymosis
Respiratory: Clear to Auscultation; Negative Wheezes
Cardiac: Regular Rhythm and S1/S2
GI: Soft and Nontender
Musculoskeletal: No Edema
Skin: Warm and Dry; Negative Rash
Neuro: Awake, Alert, Oriented and AO x 3
Psych: Calm
Pelvis CT 02/15/25
IMPRESSION:
There is an irregularity along the left inferior pubic ramus which may represent a fracture.
Head CT 02/15/25
IMPRESSION:
No acute intracranial abnormality noted.
Pelvis CT 02/23/25
IMPRESSION: No focal abscess identified. Probable cellulitis about the gluteal cleft and buttocks bilaterally as described above. No bony destruction to suggest osteomyelitis.
Subacute left pelvic fractures.
Mild volume overload/third spacing.
Moderate fecal material throughout the colon. Findings concerning for fecal impaction.
69F uninsured hx Tobacco use here for mechanical w/ associate pelvic fracture and ambulatory dysfunction.
PLAN:
# Mechanical fall with left inferior pubic rami fracture
-patient tripped over dog 5 days prior to presentation and was scooting on bottom to get around at home; presentation delayed because she doesn't have health insurance and was hopeful she would improve on her own
-Tylenol 1000 mg TID
-Oxy 5 PRN moderate pain; 10 PRN severe pain
- PT/OT recommending SNF, patient prefers to go home but agreeable for SNF - she is looking into options, discussing with CM.
Rhabdomyolysis
-s/p IVF with normalization of CK, stable renal function
Unstageable sacral pressure injury
Unstageable R ischial pressure injury
DTI L ischium
R heel DTI
stage 2 pressure injury
-L hip stage 1, probable deep tissue injury
-CT pelvis without e/o osteo or abscess
-appreciate wound care and GS consulted. Per GS, conservative management first. Patient will follow up as outpatient with GS.
Hyponatremia
-suspect SIADH 2/2 pain
-Renal eval appreciated, Na since improved with Samsca 02/24
-Na remains stable since improvement, salt tabs tapered off, cont fluid restriction 1200 cc/day
Fecal Impaction seen on CT/Constipation
-since 02/23 patient has had multiple BM
-constipation and possible fecal impaction likely resolved at this time
Underweight
-Nutritional support
Left periorbital ecchymosis
- CT head negative
Hypokalemia
resolved
Anemia
-H&H stable
Smoker
- Nicotine patch
Full code
DVT prophylaxis� Lovenox
I spent a total of 37 minutes with the patient or on the floor. More than 50% of this time involved counseling and coordination of care.
Anticipated Discharge: Within 24 hours
Subjective/Interval History
-
Date of Service: February 26, 2025
No acute distress, siting up comfortably in chair, overall reports feeling well.
Objective Data
-
Labs:
Laboratory Results
02/26/25
05:15
Sodium 135
Potassium 4.1
Chloride 104
Carbon Dioxide 29
BUN 10
Creatinine 0.6
Glucose 83
Calcium 8.1 L
Vital Signs:
Vital Signs
Temp Pulse Resp BP Pulse Ox
98.4 F 85 14 123/57 98
02/25/25 23:50 02/25/25 23:50 02/25/25 23:50 02/25/25 23:50 02/25/25 23:50
I&O
02/25/25 02/26/25 02/27/25
06:59 06:59 06:59
Intake Total 1030 / 1030 1140 / 1140
Balance 1030 / 1030 1140 / 1140
[2025-02-26 08:22] VITALS: BP 136/65
[2025-02-26] MEDS: TYLENOL 1000 MG PO ×3 (09:00→21:33)
[2025-02-26] MEDS: NICODERM TRANSDERMAL 14 MG TRANSDERM (09:00)
[2025-02-26] MEDS: SODIUM CHLORIDE 1 GRAM PO (09:01)
[2025-02-26] MEDS: SENOKOT PO ×2 (09:02→20:48)
[2025-02-26] MEDS: MIRALAX PO ×2 (09:02→20:48)
[2025-02-26] MEDS: SANTYL OINTMENT TOPICAL (09:03)
[2025-02-26] MEDS: DAKIN'S SOLUTION 0.125% 1/4 STRENGTH TOPICAL (09:08)
[2025-02-26] MEDS: SANTYL OINTMENT 1 APPLIC TOPICAL ×2 (10:25→21:32)
[2025-02-26] MEDS: DAKIN'S SOLUTION 0.125% 1/4 STRENGTH 473 ML TOPICAL (10:25)
--- NOTE | 2025-02-26 11:28 | WOUNDNOTE ---
WO RN NOTE: Patient visited for new buttock unstageable PI found on HAP report. Patient assessed and no new wounds were found. Wound care provided to unstageable sacrum and buttock wounds and heel wounds as ordered. Heel wounds stable with stage 1
PI to left heel and DTI on right (POA). Patient declining use or fiber filled boots but is keeping heels off-loaded with pillow and air cushion under calf. Patient turns and stands with assist. She said her appetite is improving (BMI 15). Patient
states she is trying to consume enough calories and is followed by dietary. She said she is trying to eat all of the fortified pudding on her lunch and dinner tray. Will continue to follow during in-patient stay.
[2025-02-26 11:39] VITALS: BP 110/62; PULSE 77; O2SAT 98
[2025-02-26 11:43] VITALS: BP 110/62; PULSE 77; O2SAT 98
--- NOTE | 2025-02-26 13:20 | CM ---
Addendum entered by Linda Martinez RN 02/26/25 16:54:
TT Mary at Wound care center Pt will need to pay privately at wound care center. If debridement needed will cost $1000.00 which pt can not afford. Pt will need to apply to [facility] [place] sekou. Pt has information.
Addendum entered by Linda Martinez RN 02/26/25 16:16:
Checked with JORGE Kumar and patient makes too much for medicaid.
Addendum entered by Linda Martinez RN 02/26/25 16:11:
Pt said she decided to go home not SNF
Pt said she may need a wc van for discharge. Notified her there is a charge for wc van.She has one step to enter home.
Pt has wheelchair/walker and walker. She said she will get a commode.
She will apply for medicare.
She has information for [facility].
Mary do will be assisting patient at [phone].
Will need to follow up with wound care center.
PLAN Home with family
Original Note:
Family requested SNF referral to pay privately.
Referral in care port.[facility] Declined,
Spoke with Cady Jarrett she is reviewing clinical.
Spoke with Rodrick Cooley she is also reviewing case.
PLAN Private pay SNF if located VS home
--- NOTE | 2025-02-26 13:25 | W.PN.NEPH.PH ---
Today's Communication / Plan
-
Continue fluid restriction
Assessment/Plan
-
Assessment
Fall
Anemia
Hyponatremia
Relative hypotension
Smoker
Plan:
reconsult for for persistent hyponatremia despite FR and salt tab
U osmo 399, u na 103
likely SIADH from pain
Sodium improved with Samsca
Discussed with the daughter at bedside she needs to restrict her fluid going forward.
Follow BMP
-
-
Date of Service: February 26, 2025
CC / HPI / ROS
-
Chief Complaint:
HYponatremia
History of Present Illness:
sodium low at 127
hb stable at 9.5
Bp stable but tachy slightly
Review of Systems:
no cp or sob
loose BMs
pain fair control
out of bed with PT today
Labs
-
Labs:
WBC 9.2 10^3/uL (4.8-10.8) 02/24/25 05:31
RBC 2.62 10^6/uL (4.20-5.40) L 02/24/25 05:31
Hgb 9.5 g/dL (12.0-16.0) L 02/24/25 05:31
Hct 28.3 % (37.0-47.0) L 02/24/25 05:31
Plt Count 447 10^3/uL (130-400) H 02/24/25 05:31
Sodium 135 mmol/L (135-145) 02/26/25 05:15
Potassium 4.1 mmol/L (3.5-5.1) 02/26/25 05:15
Chloride 104 mmol/L (98-107) 02/26/25 05:15
Carbon Dioxide 29 mmol/L (22-30) 02/26/25 05:15
BUN 10 mg/dl (7-17) 02/26/25 05:15
Creatinine 0.6 mg/dL (0.6-1.0) 02/26/25 05:15
eGFR > 60.00 02/26/25 05:15
Glucose 83 mg/dl (70-99) 02/26/25 05:15
Calcium 8.1 mg/dl (8.4-10.2) L 02/26/25 05:15
Skk-R-Rajqsxfmkhq Pept 660 pg/ml 02/25/25 05:19
Albumin 2.5 g/dl (3.5-5.0) L 02/16/25 05:43
Physical Exam
-
Vital Signs:
Vital Signs
Temp Pulse Resp BP Pulse Ox
98.5 F 94 16 136/65 97
02/26/25 08:22 02/26/25 08:22 02/26/25 08:22 02/26/25 08:22 02/26/25 08:22
[2025-02-26 16:25] VITALS: BP 116/64
[2025-02-26] MEDS: LOVENOX 30 MG SC (17:38)
--- NOTE | 2025-02-26 18:31 | PTCARENOTE ---
pt medicated with PRN Roxicodone 5 mgs PO x2 for c/o left buttocks pain with good relief. sat oob after working with therapy for about 1 hour. transferring with assist x1 to [facility]. refused Miralax and Senna due to loose stools, vss, will continue
to monitor.
[2025-02-26] MEDS: DAKIN'S SOLUTION 0.125% 1/4 STRENGTH 1 ML TOPICAL (21:31)
[2025-02-26] MEDS: REMOVE NICOTINE PATCH 1 PATCH REMOVE (21:33)
[2025-02-26] MEDS: MELATONIN 5 MG PO (21:33)
[2025-02-26 23:55] VITALS: BP 145/65
[2025-02-27] MEDS: ROXICODONE 5 MG PO ×3 (03:14→13:58)
[2025-02-27 07:32] VITALS: BP 133/65
--- NOTE | 2025-02-27 07:50 | W.PN.HOSP.TC ---
Today's Communication/Plan
-
discharge
Assessment / Plan
Assessment / Plan
Physical Exam
General: No Apparent Distress
HEENT: PERRLA, Left periorbital ecchymosis
Respiratory: Clear to Auscultation; Negative Wheezes
Cardiac: Regular Rhythm and S1/S2
GI: Soft and Nontender
Musculoskeletal: No Edema
Skin: Warm and Dry; Negative Rash
Neuro: Awake, Alert, Oriented and AO x 3
Psych: Calm
Pelvis CT 02/15/25
IMPRESSION:
There is an irregularity along the left inferior pubic ramus which may represent a fracture.
Head CT 02/15/25
IMPRESSION:
No acute intracranial abnormality noted.
Pelvis CT 02/23/25
IMPRESSION: No focal abscess identified. Probable cellulitis about the gluteal cleft and buttocks bilaterally as described above. No bony destruction to suggest osteomyelitis.
Subacute left pelvic fractures.
Mild volume overload/third spacing.
Moderate fecal material throughout the colon. Findings concerning for fecal impaction.
69F uninsured hx Tobacco use here for mechanical w/ associate pelvic fracture and ambulatory dysfunction.
PLAN:
# Mechanical fall with left inferior pubic rami fracture
- patient tripped over dog 5 days prior to presentation and was scooting on bottom to get around at home; presentation delayed because she doesn't have health insurance and was hopeful she would improve on her own
- Tylenol 1000 mg TID
- Oxy 5 PRN moderate pain; 10 PRN severe pain
- PT/OT recommending SNF, patient however uninsured and unable to afford private pay- requesting discharge home
Rhabdomyolysis
-s/p IVF with normalization of CK, stable renal function
Unstageable sacral pressure injury
Unstageable R ischial pressure injury
DTI L ischium
R heel DTI
stage 2 pressure injury
-L hip stage 1, probable deep tissue injury
-CT pelvis without e/o osteo or abscess
-appreciate wound care and GS consulted. Per GS, conservative management first. Patient will follow up as outpatient with GS.
Hyponatremia
-suspect SIADH 2/2 pain
-Renal eval appreciated, Na since improved with Samsca 02/24
-Na remains stable since improvement, salt tabs tapered off, cont fluid restriction 1200 cc/day
Fecal Impaction seen on CT/Constipation
-since 02/23 patient has had multiple BM
-constipation and possible fecal impaction likely resolved at this time
Underweight
-Nutritional support
Left periorbital ecchymosis
- CT head negative
Hypokalemia
resolved
Anemia
-H&H stable
Smoker
- Nicotine patch
Full code
DVT prophylaxis� Lovenox
Medically stable for discharge home with outpatient follow up recommendations.
Total Time Preparing Discharge ___40____ minutes including examination of the patient, summary of the hospital stay, instructions for continuing care to all relevant caregivers; and preparation of discharge records, prescriptions, and referral
forms if necessary.
Anticipated Discharge: Today
Subjective/Interval History
-
Date of Service: February 27, 2025
Seen and examined at bedside in no acute distress sitting up comfortably in bed. Denies new acute issues. Eager to go home.
Objective Data
-
Labs:
Laboratory Results
02/27/25
06:00
Sodium Cancelled
Potassium Cancelled
Chloride Cancelled
Carbon Dioxide Cancelled
BUN Cancelled
Creatinine Cancelled
Glucose Cancelled
Calcium Cancelled
Vital Signs:
Vital Signs
Temp Pulse Resp BP Pulse Ox
98.4 F 85 16 133/65 98
02/27/25 07:32 02/27/25 07:32 02/27/25 07:32 02/27/25 07:32 02/27/25 07:32
I&O
02/26/25 02/27/25 02/28/25
06:59 06:59 06:59
Intake Total 1140 / 1140 420 / 420
Balance 1140 / 1140 420 / 420
[2025-02-27] MEDS: MIRALAX PO (07:53)
[2025-02-27] MEDS: DAKIN'S SOLUTION 0.125% 1/4 STRENGTH 473 ML TOPICAL (07:53)
[2025-02-27] MEDS: SENOKOT PO (07:54)
[2025-02-27] MEDS: SANTYL OINTMENT 1 APPLIC TOPICAL (07:56)
[2025-02-27] MEDS: TYLENOL 1000 MG PO ×2 (07:56→16:29)
[2025-02-27] MEDS: NICODERM TRANSDERMAL 14 MG TRANSDERM (07:57)
[2025-02-27 11:22] LABS: Blood Urea Nitrogen 9 mg/dl (7-17); Calcium 8.4 mg/dl (8.4-10.2); Carbon Dioxide 27 mmol/L (22-30); Chloride 101 mmol/L (98-107); Estimated Creatinine Clearance 59 ml/min; Glucose 83 mg/dl (70-99); Potassium 4.2 mmol/L (3.5-5.1); Sodium 130 mmol/L (135-145); eGFR > 60.00
--- NOTE | 2025-02-27 13:19 | W.PN.NEPH.PH ---
Today's Communication / Plan
-
see plan
Assessment/Plan
-
Assessment
Mechanical fall with left inferior pubic rami fracture
Rhabdomyolysis
Anemia
Hyponatremia
Relative hypotension
Smoker
Plan:
likely SIADH from pain
Sodium down to 130 today
will redose gary, may benefit from lasix 20mg daily at d/c however will need f/u labs
strict FR 40-48 ounces/day
encourage solute intake
long d/w pt , she has no insurance or PCP
will need labs f/u
reviewed symp of hyponatremia
-
-
Date of Service: February 27, 2025
CC / HPI / ROS
-
Chief Complaint:
HYponatremia
History of Present Illness:
sodium low at 127
hb stable at 9.5
Bp stable but tachy slightly
Review of Systems:
no cp or sob
loose BMs
pain fair control
out of bed with PT today
Labs
-
Labs:
WBC 9.2 10^3/uL (4.8-10.8) 02/24/25 05:31
RBC 2.62 10^6/uL (4.20-5.40) L 02/24/25 05:31
Hgb 9.5 g/dL (12.0-16.0) L 02/24/25 05:31
Hct 28.3 % (37.0-47.0) L 02/24/25 05:31
Plt Count 447 10^3/uL (130-400) H 02/24/25 05:31
Sodium 130 mmol/L (135-145) L 02/27/25 10:15
Potassium 4.2 mmol/L (3.5-5.1) 02/27/25 10:15
Chloride 101 mmol/L (98-107) 02/27/25 10:15
Carbon Dioxide 27 mmol/L (22-30) 02/27/25 10:15
BUN 9 mg/dl (7-17) 02/27/25 10:15
Creatinine 0.6 mg/dL (0.6-1.0) 02/27/25 10:15
eGFR > 60.00 02/27/25 10:15
Glucose 83 mg/dl (70-99) 02/27/25 10:15
Calcium 8.4 mg/dl (8.4-10.2) 02/27/25 10:15
Gea-M-Mrljzkpjxnx Pept 660 pg/ml 02/25/25 05:19
Albumin 2.5 g/dl (3.5-5.0) L 02/16/25 05:43
Physical Exam
-
Vital Signs:
Vital Signs
Temp Pulse Resp BP Pulse Ox
98.4 F 85 16 133/65 98
02/27/25 07:32 02/27/25 07:32 02/27/25 07:32 02/27/25 07:32 02/27/25 07:32
Cardiovascular:: Regular rate and rhythm
Respiratory:: Bilateral: CTA
Lung Excursion:: Normal
Abdomen:: Nontender and Soft
Extremity Edema:: None: Bilateral:
Kaye Catheter: No
--- NOTE | 2025-02-27 13:22 | CM ---
Addendum entered by Roseann Bravo 02/27/25 16:42:
mobile marketing manager reached out to [facility] to [phone] requesting that they follow up with patient.
Addendum entered by Roseann Bravo 02/27/25 16:28:
Patient has a 5:15pm picket labor union, by w/c tramaine. manager case spoke with PT/OT and they met with patient again today, and offered patient information on safe ambulation in home, including information on obtaining a commode and walker after discharge.
Daughter has also been discharged from the hospital and came to visit patient.
Original Note:
Chart reviewed and patient is for possible discharge today, manager case met with patient this am, physical therapy are recommending skilled, manager case reviewed possible options, patient has no insurance however, manager case offered to apply for
[place] for [facility] and short term disability, patient declined both options stating that she wanted to return to home, per [employer] patient does not qualify for Medicaid due to income. manager case reviewed possible home PT options with private
pay, caregiver and patient took information but did not agree to manager case setting up any services for her.
Plan; Home today may need w/c transport, daughter to stay with patient for a while, patient was given information on private pay PT/OT and [facility].
[2025-02-27] MEDS: SAMSCA 7.5 MG PO (13:58)
--- NOTE | 2025-02-27 15:40 | W.DCSUMMARY ---
Discharge Summary
Discharge Data
Date of Admission: 02/15/25
Date of Discharge: 02/27/25
-
Pending Results: No
Discharge Plan
-
Patient Disposition: Home (Routine Discharge)
Discharge Diagnosis/Procedures: Mechanical fall with left inferior pubic rami fracture
Rhabdomyolysis
Unstageable sacral pressure injury
Unstageable R ischial pressure injury
Deep Tissue Injury L ischium
Right heel Deep Tissue Injury
Hyponatremia, suspect SIADH (Syndrome Inappropriate Anti-diuretic Hormone secretion) due to pain
Fecal Impaction, Constipation, resolved
Underweight
Left periorbital ecchymosis
Tobacco Dependence
Condition: Fair
Additional Diets: 40 oz (1200 mL) daily fluid restriction
Activity: As tolerated
Blood Work: Repeat CBC and BMP with primary care provider in 1 week of discharge
Activity Restrictions/Additional Instructions:
Wound Care Instructions
Bilateral ischial and sacral ulcers-clean with 1/4 stength Dakin's solution, Santyl ointment to necrotic tissue, cover with silicone border foam (add alginate prn large amount of drainage), change bid and prn drainage.
L heel-no sting skin prep (allow to dry), foam dressing, change q 3 days and prn loosened dressing.
R heel-swab with Betadine or no sting skin prep (allow to dry), foam dressing, change daily.
Spine-clean with saline, silicone border foam, change q 3 days and prn loosened dressing.
L hip-clean with saline, silicone border foam, change q 3 days and prn loosened dressing.
Air mattress
Turning schedule
elevate heels off bed with pillow/s or use soft heel relief boots (i.e. TruVue lite boots).
Pressure redistributing chair cushion (i.e. Air, Roho). Limit sitting to 1-2hrs TID with pressure redistributing chair cushion (i.e. Air, Roho).
Follow up with surgeon Dr. Dario Hart in 3-4 weeks, call for appointment.
Follow up at wound care center, call for an appointment.
Follow up with primary care provider in 1 week of discharge.
Strict abstinence from Tobacco use is strongly advised. Further tobacco use can interfere with wound healing, worsen your overall condition, and increase your risk of morbidity/mortality.
Referrals:
NONE,* [Family Provider, Internal Medicine]
Dario Hart MD [Active, Surgical] - in three to four weeks
Prescriptions:
New
Dakin's Solution 0.125 % Solution
1 applic topical BID Qty: 473 0RF
Rx Instructions:
sacral ischial pressure injuries
nicotine 14 mg/24 hr Patch 24 Hour
14 mg transdermal DAILY Qty: 7 0RF
Santyl 250 unit/gram Ointment
1 applic topical BID Qty: 90 0RF
Rx Instructions:
Necrotic Tissue sacral, ischial, pressure injuries
oxycodone 5 mg Tablet
5 mg PO Q6HPRN PRN (Reason: Moderate Severe pain) Qty: 28 0RF
acetaminophen [Tylenol Extra Strength] 500 mg Tablet
1,000 mg PO TID PRN (Reason: Pain) Qty: 60 0RF
Discharge Orders:
Discharge Patient (As Directed); Ordered 02/27/25
Ordered By: Jaspreet Martinez
Discharge Date and Time
Print Language: INDONESIAN
[2025-02-27 15:41] VITALS: BP 139/66
[2025-02-27 16:21] VITALS: BP 121/68; PULSE 102; PULSE 103; O2SAT 98; O2SAT 99
[2025-02-27] MEDS: FLUZONE HIGH-DOSE 2025-26 0.5 ML IM (16:31)
[2025-02-27] MEDS: PREVNAR 20 0.5 ML IM (16:32)
== END 2025-02-27 17:41 | disposition home or self-care (01) | DRG 964 ==
LOC: 3 WEST ACU 16:41
PROVIDERS: Hospitalist; Internal Medicine; Physician Assistant; Student in an Organized Health Care Education/Training Program; ADMITTING PHYSICIAN Hospitalist; ATTENDING PHYSICIAN Internal Medicine; CONSULT PHYSICIAN Surgery; EMERGENCY PHYSICIAN Student in an Organized Health Care Education/Training Program; OTHER PHYSICIAN Specialist
DX: S32.592A Other specified fracture of left pubis, initial encounter for closed fracture (principal); E22.2 Syndrome of inappropriate secretion of antidiuretic hormone; T79.6XXA Traumatic ischemia of muscle, initial encounter; Z68.1 Body mass index [BMI] 19.9 or less, adult; F17.210 Nicotine dependence, cigarettes, uncomplicated; D64.9 Anemia, unspecified; E87.6 Hypokalemia; R63.6 Underweight; L89.150 Pressure ulcer of sacral region, unstageable; L89.310 Pressure ulcer of right buttock, unstageable; L89.102 Pressure ulcer of unspecified part of back, stage 2; S90.31XA Contusion of right foot, initial encounter; S00.12XA Contusion of left eyelid and periocular area, initial encounter; W19.XXXA Unspecified fall, initial encounter; Z59.71 Insufficient health insurance coverage
CPT/HCPCS: 70450; 72170; 72194; 80048; 80053; 82533; 82550; 82570; 83735; 83880; 83930; 83935; 84300; 84443; 85014; 85018; 85025; 85027; 90662; 90677; 97110; 97112; 97116; 97163; 97167; 97530; 97535; 99285; G0008; G0009; Q9967

== ENCOUNTER 2025-03-04 15:06 | Inpatient (IN) | payer SELFPAY ==
[2025-03-04] VITALS (11 sets, daily range): BP systolic 101–153; BP diastolic 49–96; BMI 18.1
--- NOTE | 2025-03-04 12:52 | ED.GENMED ---
History of Present Illness
General
Chief Complaint: Wound Check/Suture Removal
Source: patient
Exam Limitations: none
Time Seen by Provider: 03/04/25 12:41
History of Present Illness
History of Present Illness:
See MDM
Past History
Past History
ED Past Medical History: None
ED Past Surgical History: None
Social History
Tobacco: Former smoker
Alcohol: None
Phy Exam
Physical Exam
Physical Exam:
See MDM
Course
Orders/Labs/Results
Orders:
Orders
03/04/25 12:47
Electrocardiogram (*1) Urgent
Reason for Study: Chest Pain
Cardiac Monitoring- Treatment ONCE
EKG- Treatment ONCE
IV Insert/Care/Rem.- Treatment PRN
O2 Therapy [RESP] Urgent
Titrate/Wean O2 to maintain O2 sat greater than (%): 90
Special Instructions: Maintain sats >/=90%
Pulse Ox/spot Check [RESP] Urgent
Quantity: 1
Special Instructions: ON ROOM AIR
03/04/25 12:50
Complete Blood Count/With Diff Urgent
Comprehensive Metabolic Panel Urgent
NT-proBNP Urgent
Troponin I Urgent
03/04/25 12:51
Morphine Sulfate 4 mg IV NOW STA
03/04/25 12:52
CR Chest - 2 Views Urgent
Comment:
Reason For Exam: SOB
03/04/25 13:29
Clindamycin Phosphate [Cleocin] 300 mg 0.9% Sodium Chloride [Nss] 50 ml IV NOW
Furosemide [Lasix] 40 mg IV NOW STA
Abnormal Lab Results
03/04/25
12:50
RBC 2.56 L 10^6/uL
(4.20-5.40)
Hgb 9.1 L g/dL
(12.0-16.0)
Hct 27.5 L %
(37.0-47.0)
MCV 107.4 H fL
(81.0-99.0)
MCH 35.5 H pg
(27.0-31.0)
Absolute Monos (auto) 0.8 H 10^3/uL
(0.1-0.6)
Lymphocytes % 19.3 L %
(20.5-51.1)
Monocytes % 10.7 H %
(1.7-9.3)
Sodium 133 L mmol/L
(135-145)
BUN 20 H mg/dl
(7-17)
Alkaline Phosphatase 180 H U/L
(38-126)
Albumin 3.4 L g/dl
(3.5-5.0)
03/04/25 12:50
03/04/25 12:50
Vital Signs
Initial and Last Documented VS:
Initial Vital Signs
Temp Pulse Resp BP Pulse Ox
98.4 F 84 16 142/73 97
03/04/25 12:37 03/04/25 12:37 03/04/25 12:37 03/04/25 12:37 03/04/25 12:37
Last Documented Vital Signs
Temp Pulse Resp BP Pulse Ox
98.4 F 97 22 130/69 98
03/04/25 12:37 03/04/25 13:19 03/04/25 13:19 03/04/25 13:19 03/04/25 13:19
MDM/Problems Addressed
Differential Diagnosis Includes:
Note:
CHIEF COMPLAINT(S)
Bilateral lower extremity swelling and chest pain.
HISTORY OF PRESENT ILLNESS
The patient is a 69-year-old female with a history of a pelvic fracture about a week ago. She presents with complaints of bilateral lower extremity swelling and intermittent chest pain. The pelvic fracture occurred due to a fall, and since then, she
has been managing pain with oxycodone. She reports a rug burn from scooting around on the floor post-fracture. Since being discharged, she has been using a walker and had physical therapy before her discharge home. Her daughter, who assisted her
initially, returned to work, leaving the patient home alone since Sunday.
She has not been able to access proper wound care for a deepening wound with an odor, which she feels needs cleaning. Swelling began Sunday as well, and there is severe discomfort associated with the wound. The patient denies any history of heart
issues but reports being short of breath when exerted, not at rest, and occasionally while lying flat. She also experiences occasional coughing. The patients sleep is disrupted due to the wound.
She has been unable to organize home wound care due to financial constraints and was informed by healthcare providers that she could not be referred for rehab due to lack of insurance.
ADDITIONAL HISTORY OBTAINED FROM SOURCE OTHER THAN PATIENT
Per the patients daughter, she was assisting with wound care before returning to work.
SOCIAL DETERMINANTS AFFECTING HEALTH
The patient lacks insurance, which affects her ability to receive wound care and potential rehabilitation. The patient is home alone, as her daughter returned to work, which raises concerns about her ability to manage wound care independently. There
is financial hardship that limits access to necessary care and rehabilitation services.
PHYSICAL EXAM
General: Alert, no acute distress. Frail
Skin: Large bilateral wounds to buttock that are seeping and malodor
Head: Normocephalic, atraumatic
Neck: Appears supple, trachea midline.
Eyes, Ears, Nose, Mouth, and Throat: Moist mucous membranes
Cardiovascular: No signs of cyanosis. Regular rate and rhythm
Respiratory: Respirations are non-labored. Lungs clear
Abdomen: Non-distended
Musculoskeletal: +2 pitting edema bilateral lower extremities
Neurological: No focal neurological deficit observed.
Psychiatric: Cooperative, appropriate mood and affect.
PLAN
- Evaluate for congestive heart failure (CHF) with appropriate workup.
- Consider antibiotics for suspected wound infection, pending culture results.
- Consult case management for potential assistance with wound care and rehabilitation options.
- Address patients lack of insurance and explore available financial assistance programs.
DIFFERENTIAL DIAGNOSIS
The Differential Diagnosis includes, in no particular order and is not limited to:
- Congestive heart failure (CHF)
- Deep vein thrombosis (DVT)
- Cellulitis or soft tissue infection
- Pneumonia
- Urinary tract infection
- Myocardial ischemia or infarction
- Pulmonary embolism
- Chronic venous insufficiency
- Lymphedema
- Medication side effects
SUMMARY OF ENCOUNTER
The patient, a 69-year-old female, presented to the emergency department with bilateral lower extremity swelling, intermittent chest pain, and a concerning wound. Her medical condition is complicated by a recent pelvic fracture, leading to impaired
mobility and self-care challenges. The patient faces significant barriers to healthcare, including the lack of insurance, which affects her ability to receive adequate wound care and rehabilitation. The evaluation aimed to rule out CHF, DVT, and
infection, and involved addressing the patients social determinants of health.
ASSESSMENT
The patient presents with potential CHF exacerbation or infection, complicated by poor wound management and lack of support due to social determinants such as financial hardship and lack of insurance.
FOLLOW-UP INSTRUCTIONS
Referral to case management for assistance with securing wound care and exploring rehabilitation options.
MEDICATION RECONCILIATION
Consider prescribing antibiotics for suspected wound infection pending further evaluation and consultation.
MEDICAL DECISION MAKING
- Number and Complexity of Problems Addressed: Chronic conditions affecting care include the recent pelvic fracture and suspected CHF or infection.
- Data:
Category 1:
Consideration of CHF workup and potential antibiotic therapy.
Category 2:
Input from the patient�s daughter regarding home support and wound care.
- Risk:
Prescription medication was considered. Care significantly affected by Social Determinants of Health including lack of insurance and financial hardship.
My independent EKG interpretation is:
- Time of EKG: Not specified
- Rhythm: Normal sinus rhythm
- Heart Rate: 94 beats per minute
- [place]: Normal
- ST Segment: No elevation noted
- Ectopic Beats: None noted
SUMMARY OF ENCOUNTER
The patient, a 69-year-old female, presented to the emergency department with bilateral lower extremity swelling, intermittent chest pain, and a worsening wound from a prior pelvic fracture. Notable concerns included suspected pulmonary edema and a
potentially infected wound that is not healing well. Initial management involved addressing these concerns.
DISPOSITION
Admit
ASSESSMENT
The patient presents with possible pulmonary edema and a soft tissue infection due to a poorly healing wound.
EMERGENCY TREATMENTS ADMINISTERED
Administered a dose of furosemide to address potential pulmonary edema. Administered intravenous clindamycin for the suspected wound infection.
PLAN
Admit the patient for further evaluation and management, including potential rehabilitation. Initiate appropriate wound care in the hospital before potential discharge.
MEDICATION RECONCILIATION
Administered a dose of furosemide. Administered intravenous clindamycin.
MEDICAL DECISION MAKING
- Number and Complexity of Problems Addressed: Chronic conditions affecting care include the recent pelvic fracture and potential pulmonary edema or wound infection.
- Data:
Category 1:
My independent interpretation of an EKG shows normal sinus rhythm with a heart rate of 94 beats per minute and normal axis, without ST elevation or ectopic beats.
Category 2:
Clinical information was obtained from the patients daughter, who assisted with wound care initially.
- Risk:
Prescription medication was prescribed (furosemide, clindamycin). Care significantly affected by Social Determinants of Health, including lack of insurance and financial hardship.
DIAGNOSIS
- Unspecified edema (ICD-10: R60.9)
- Infection and inflammatory reaction due to internal orthopedic prosthetic devices, implants, and grafts (ICD-10: T84.50XA)
- Pulmonary edema, unspecified (ICD-10: J81.0)
*Pulse Oximetry
Patient hypoxic: no
*Critical Care Note
Total Time (30-74mins, 75-104mins- exclusive of procedures): 33 min
comment:
The high probability of a clinically significant, sudden or life threatening deterioration of the cardiopulmonary system(s) required my full and direct attention, intervention and personal management. The aggregate critical care time was 33 minutes.
This time is in addition to time spent performing reported procedures but includes the following:
[x] Data Review and interpretation
[x] Patient assessment and monitoring of vital signs
[x] Documentation
[x] Medication orders and management
ED Attending Note
-
Portions of this chart may have been created with voice recognition software.� Occasional wrong word or��sound alike� substitutions may have occurred due to the inherent limitations of voice recognition software.
Discharge Plan
Departure
Patient Disposition: Admit
Date of Disposition: 03/04/25
Time of Disposition: 13:32
Admit to: Telemetry
Presentation/result/management discussed w/ accepting MD/DO: Hospitalist
Discharge Problem:
Pulmonary edema, Sacral wound
Prescriptions:
No Action
Dakin's Solution 0.125 % Solution
1 applic topical BID Qty: 473 0RF
Rx Instructions:
sacral ischial pressure injuries
nicotine 14 mg/24 hr Patch 24 Hour
14 mg transdermal DAILY Qty: 7 0RF
Santyl 250 unit/gram Ointment
1 applic topical BID Qty: 90 0RF
Rx Instructions:
Necrotic Tissue sacral, ischial, pressure injuries
oxycodone 5 mg Tablet
5 mg PO Q6HPRN PRN (Reason: Moderate Severe pain) Qty: 28 0RF
acetaminophen [Tylenol Extra Strength] 500 mg Tablet
1,000 mg PO TID PRN (Reason: Pain) Qty: 60 0RF
multivitamin Tablet
1 tab PO DAILY Qty: 30 0RF
Interventions
Interventions:
*Risk Screen - Suicide Last Done: 03/04/25 12:37
*Neglect/Abuse Screening Last Done: 03/04/25 12:37
*ED- Fall Risk Assessment Last Done: 03/04/25 12:37
ED-Skin Assessment Last Done: 03/04/25 12:37
Discharge Date and Time
Print Language: LATVIAN
[2025-03-04 12:59] LABS: Hematocrit 27.5 % (37.0-47.0); Hemoglobin 9.1 g/dL (12.0-16.0); Mean Corp Hgb Conc. 33.1 g/dL (33.0-37.0); Mean Corpuscular Volume 107.4 fL (81.0-99.0); Nucleated Red Blood Cells % 0 %; Platelet Count 383 10^3/uL (130-400); Red Cell Dist. Width 13.5 % (11.5-14.5)
[2025-03-04 13:14] LABS: ALT (SGPT) 22 U/L (0-35); AST (SGOT) 26 U/L (14-36); Albumin 3.4 g/dl (3.5-5.0); Alkaline Phosphatase 180 U/L (38-126); Blood Urea Nitrogen 20 mg/dl (7-17); Calcium 8.7 mg/dl (8.4-10.2); Carbon Dioxide 28 mmol/L (22-30); Chloride 99 mmol/L (98-107); Glucose 81 mg/dl (70-99); Potassium 4.2 mmol/L (3.5-5.1); Sodium 133 mmol/L (135-145); Total Protein 6.7 g/dl (6.3-8.2); eGFR > 60.00
[2025-03-04] MEDS: MORPHINE SULFATE 4 MG IV (13:21)
[2025-03-04 13:25] LABS: Troponin I < 0.012 ng/ml
--- NOTE | 2025-03-04 13:36 | HPS.HSE ---
Family Physician
-
Family Physician:
Chief Complaint
-
drainage from wounds
History of Present Illness
Ms. Lina Campa is a 69 yo woman with hx tobacco use, HTN, anxiety, recent admission 02/15-02/27 post mechanical fall resulting in pubic rami fracture + multiple deep pressure injury wounds sent home with HH represents to the ER with increasing
discharge from wounds.
Patient states that after discharge she went home. She was not able to go to rehab because she doesn't have insurance. Her daughter was home with her but then had to return to [place]. Patient is unable to care for her wounds on her own at home and
wasn't able to get HH to see her. She has noticed increasing pain, smell and drainage.
She has had decreased appetite. Drinking ensure. No nausea/vomiting/abdominal pain. She has had increasing lower extremity swelling that is causing discomfort. + right sided chest discomfort noticed yesterday evening.
Medical History
Past Medical History
Past Medical History: Reports Other (none )
Past Surgical History: Reports Other (Hernia repair, D&Cs)
Social History
Tobacco: Smoker
Alcohol: Occasional
Drug: None
Family History
Family History: Not pertinent
Allergies / Home Medications
Allergies reflects when Allergies were last updated in [facility].
Home Medications with original date entered in [facility]
Allergy/Medication List:
Allergies
Allergy/AdvReac Type Severity Reaction Status Date / Time
No Known Allergies Allergy Verified 03/04/25 12:55
Home Medications
acetaminophen 500 mg tablet (Tylenol Extra Strength) 1,000 mg (2 x 500 mg) PO TID PRN Pain #60 tabs 02/27/25
collagenase clostridium histo. 250 unit/gram topical ointment (Santyl) 1 applic topical BID #90 grams 02/27/25
multivitamin 1 tab PO DAILY #30 tabs 02/27/25
nicotine 14 mg/24 hr daily transdermal patch 14 mg transdermal DAILY #7 ea 02/27/25
oxycodone 5 mg tablet 5 mg PO Q6HPRN PRN Moderate Severe pain #28 tabs 02/27/25
sodium hypochlorite 0.125 % solution (Dakin's Solution) 1 applic topical BID #473 mL 02/27/25
Review of Systems
-
History Source: Patient
A 12 point ROS was completed and negative except as noted: Yes
Physical Exam
Vital Signs
Vital Signs
Temp Pulse Resp BP Pulse Ox
98.4 F 97 22 130/69 98
03/04/25 12:37 03/04/25 13:19 03/04/25 13:19 03/04/25 13:19 03/04/25 13:19
Physical Exam
General: No Apparent Distress and Other (frail appearing )
HEENT: PERRLA
Respiratory: No Wheezes
Cardiac: S1/S2 and Regular Rhythm
Musculoskeletal: No Edema
Skin: Warm and Dry; No Rash
Neuro: AO x 3
Psych: Calm
Laboratory Results
-
03/04/25 12:50
03/04/25 12:50
Laboratory Results
Total Bilirubin 0.5 mg/dl (0.2-1.3) 03/04/25 12:50
AST 26 U/L (14-36) 03/04/25 12:50
ALT 22 U/L (0-35) 03/04/25 12:50
Alkaline Phosphatase 180 U/L (38-126) H 03/04/25 12:50
Troponin I < 0.012 ng/ml 03/04/25 12:50
Data Reviewed
-
Diagnostic Radiology: Report Reviewed by me
Lab Data: Labs Reviewed by me
Impression/Plan
-
Ms. Lina Campa is a 69 yo woman with hx tobacco use, HTN, anxiety, recent admission 02/15-02/27 post mechanical fall resulting in pubic rami fracture + multiple deep pressure injury wounds sent home with HH represents to the ER with increasing
discharge from wounds.
Triage VS: T 98.4, P 84, RR 16, BP 142/73, SpO2 97%
LABS: WBC 7.8, Hg 9.1, PLT 383, Na 133, K+ 4.2, CO2 28, BUN 20, Cr 0.7, Alk Phos 180, BNP 841
CXR
IMPRESSION:
Hyperinflated lungs suggestive of COPD.
Cardiac silhouette and vascular markings appear within normal limits with no evidence for pulmonary edema radiographically.
Suggestion of three mild compression deformities within the mid to lower thoracic spine as described. Please correlate with any acute symptoms referrable to the thoracic spine. No comparison examination of the thoracic spine is available.
Unstageable sacral and ischial wounds now with increasing pain, erythema and drainage
-continue IV Zosyn started in ER
-wound culture from drainage
-ID consult
-general surgery consult
-wound care consult
Lower extremity Swelling
-Lasix given in ER
-obtain LE US
-give additional Lasix if above negative
-TTE
Atypical right sided chest discomfort
-Troponin negative, repeat this evening
Essential HTN
Underweight
-nutrition support; + Ensure BID ordered
Hyponatremia
-Na stable at 133
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
DVT PPx SCD - start lovenox subQ if no surgery planned
FULL CODE
76 minutes spent on patient care
[2025-03-04] MEDS: LASIX 40 MG IV (13:37)
[2025-03-04] MEDS: ZOSYN 50 IV ×2 (14:15→19:23)
[2025-03-04] MEDS: ROXICODONE 5 MG PO (15:46)
[2025-03-04] MEDS: TYLENOL 1000 MG PO (15:47)
--- NOTE | 2025-03-04 15:55 | CON.ID ---
Consultation
-
Date/Time Consultation Requested: 03/04/2025 1514
Date/Time Consultation Performed: 03/04/2025 1600
Requesting Provider: Dr. Muñiz
Performing Provider: Dr. Suresh
Reason for Consultation: Sacral wounds
Chief Complaint / Past History
History of Present Illness
Lina Campa is a 69-year-old female being seen in Infectious Disease consultation request of Dr. Muñiz regarding sacral wounds. History is obtained from chart review, along with patient interview.
The patient was recently admitted to [facility] from 02/15 through 02/27 following a mechanical fall which resulted in a pubic rami fracture, and the development of deep pressure wounds on the buttock area. She was discharged to home rather
than rehab secondary to insurance issues, and was receiving home health there, but she developed drainage and was unable to care for the wounds by herself, thus she returned to the hospital for further evaluation.
Currently she notes ongoing buttock pain. She denies any fevers. She denies any nausea or vomiting. She notes progressive lower extremity edema.
Past History
Past Medical History: None
Additional Past Surgical History:
Hernia repair
D&C
Allergy History:
No Known Allergies Allergy (Verified 03/04/25 12:55)
Medications Reviewed: Yes
Current Antibiotics:
Zosyn 3.375 g IV every 6 hours
Social History
Tobacco: Non-Smoker
Alcohol: Daily
Drug: None
Personal: Single
Living: Alone
Employment: Not Employed
Family History
Family History: Not Pertinent
Review of Systems
Vital Signs
Temp Pulse Resp BP Pulse Ox
98.4 F 95 22 144/57 100
03/04/25 15:54 03/04/25 15:54 03/04/25 15:54 03/04/25 15:54 03/04/25 15:54
Physical Exam
Physical Exam
Constitutional: Comfortable, Chronically Ill, Non-toxic and Cachetic
Eyes: Pupils Equal, Pupils Round, No Conjunctival Hemorrhage and Sclera Anicteric
Oral: No Thrush and No Ulcers
Cardiovascular: Regular Rate and S1/S2; Negative S3/S4
Pulmonary: Clear; Negative Wheezes or Rales
Gastrointestinal: Soft, Non Tender, Non Distended and Normal Bowel Sounds
Extremities: Negative Edema or Cyanosis
Skin: Warm and Dry
Wound: Other (B/L Ischial wounds; dressed.)
Neurological: Awake and Alert
Psychological: Calm
Lab / Diagnostic Study Results
03/04/25 12:50
03/04/25 12:50
Abs Immat Gran (auto) 0.0 10^3/uL (0-0.05) 03/04/25 12:50
Absolute Neuts (auto) 5.4 10^3/uL (1.4-6.5) 03/04/25 12:50
Absolute Lymphs (auto) 1.5 10^3/uL (1.2-3.4) 03/04/25 12:50
Absolute Monos (auto) 0.8 10^3/uL (0.1-0.6) H 03/04/25 12:50
Absolute Basos (auto) 0.0 10^3/uL (0-0.2) 03/04/25 12:50
Immature Gran % 0.4 % (0-0.5) 03/04/25 12:50
Neutrophils % 68.7 % (42.2-75.2) 03/04/25 12:50
Lymphocytes % 19.3 % (20.5-51.1) L 03/04/25 12:50
Monocytes % 10.7 % (1.7-9.3) H 03/04/25 12:50
Eosinophils % 0.5 % (0-6) 03/04/25 12:50
Basophils % 0.4 % (0-2) 03/04/25 12:50
Microbiology Results
Imaging:
03/04/2025 CXR (2 view): hyperinflation suggestive of COPD. Cardiac silhouette and vascular markings appear within normal limits, and without evidence for pulmonary edema. Mild compressive deformities within the mid to lower thoracic spine noted.
02/23/2025 CT pelvis without contrast: no focal abscess seen. Suspected cellulitis around the gluteal cleft and buttocks bilaterally. No bony destruction to suggest osteomyelitis. Subacute left pelvic fracture noted. Mild volume overload/third
spacing and moderate fecal material throughout the colon. Findings concerning for fecal impaction. Please see full dictation for additional detail.
Assessment / Plan
B/L Ischial wounds
Suspected SSTI of sacral / ischial area
Deconditioning
Recent pubic rami fx
LE edema
Recommendations:
Wound cultures obtained from the decubiti; will follow
Continue with Zosyn for today.
Local care to the ischial/sacral wounds.
Monitor white count and temperature curve.
--- NOTE | 2025-03-04 16:01 | WOUNDNOTE ---
LEFT HEEL DTI, RIGHT HEEL STAGE 1 PI
--- NOTE | 2025-03-04 16:02 | WOUNDNOTE ---
RIGHT HEEL STAGE 1 PI
--- NOTE | 2025-03-04 16:12 | PTCARENOTE ---
Received pt from ED, VSS, pt ambulated x 1 assist to bed with OFE NEWMAN RN in to redress wounds, wound care now CDI. pt medicated for pain management. Pt oriented to call santoro and room, placed on air mattress with offloaded sacrum, pt resting
comfortably in bed at this time. Admission complete.
[2025-03-04] MEDS: NICODERM TRANSDERMAL 14 MG TRANSDERM (16:29)
--- NOTE | 2025-03-04 16:34 | CON.GS ---
Consultation
-
Date/Time Consultation Performed: 03/04/25
Requesting Provider: Mary Kay
Performing Provider: Charissa
Reason for Consultation: Sacral wounds
Medical History
-
Chief Complaint: Sacral pain
History of Present Illness:
69F with pelvic fracture that led to immobility and traction/pressure wounds to her sacral region. She was an inopt here 02/15-02/27 and al'ed home without wound care /2 insurance issues. Her daughter lives in [place] and is unable to offer support with
regard to the wounds. She felt the drainage was getting worse and had continued pain to the area prompting presentation to the ED. She is a smoker. She denies EtOH since the fracture occurred. She deniews f/c/n/v. She is having BMs.
Past Medical History
Past Medical History: Reviewed & Noncontributory
Past Surgical History: Gynecological (D&C) and Hernia Repair
Social History
Tobacco: Smoker
Alcohol: Occasional
Drug: None
Living: Alone
Family History
Family History: Reviewed & Noncontributory
Allergies / Home Medications
Allergy/AdvReac Type Severity Reaction Status Date / Time
No Known Allergies Allergy Verified 03/04/25 12:55
�Medication �Instructions �Recorded �Confirmed �Type
oxycodone 5 mg tablet 5 mg PO Q6HPRN PRN Moderate Severe 02/27/25 03/04/25 Rx
pain #28 tabs
acetaminophen 500 mg tablet 1,000 mg PO QIDPRN PRN mild pain 03/04/25 03/04/25 History
(Tylenol Extra Strength)
Review of Systems
-
A 10 point review of systems was completed, and was negative except as per HPI.
Physical Exam
Vital Signs
Temp Pulse Resp BP Pulse Ox
98.4 F 95 22 144/57 100
03/04/25 15:54 03/04/25 15:54 03/04/25 15:54 03/04/25 15:54 03/04/25 16:08
03/03/25 03/04/25 03/05/25
06:59 06:59 06:59
Actual Weight 47.718 kg
Body Mass Index (BMI) 18.1
Lab Results
03/04/25 12:50
03/04/25 12:50
WBC 7.8 10^3/uL (4.8-10.8) 03/04/25 12:50
Hgb 9.1 g/dL (12.0-16.0) L 03/04/25 12:50
Hct 27.5 % (37.0-47.0) L 03/04/25 12:50
Plt Count 383 10^3/uL (130-400) 03/04/25 12:50
Abs Immat Gran (auto) 0.0 10^3/uL (0-0.05) 03/04/25 12:50
Neutrophils % 68.7 % (42.2-75.2) 03/04/25 12:50
Physical Exam
General: No Apparent Distress and Other (thin)
GI: Soft and Non Tender
Skin: Other (bilateral ischial wounds approx 5cm x 5cm on each side with healthy granulation tissue, some fibrinous slough, no pus, no erythema, no foul odor; superior to this there are 2 approx 1cm x 2cm wounds with fibrinous slough in the wound
base; no frankly necrotic tissue, no fluctuance; area is tender)
Neuro: AO x 3
Psych: Calm
Data Reviewed
-
Old Records: Reviewed
Assessment / Plan
-
69F with sacral wounds
AFVSS, no leukocytosis
Wounds appear to be healing well though there is slough in the base due to poor wound care at home
There is presently no sign of infection
Recommend local wound care with santyl and saline wet to dry, can add dakins if odor develops
Offloading
Nutritional support
Dispo planning for home wound care vs snf as she is unable to manage these wounds on her own
GS will s/o pls call with ?s
--- NOTE | 2025-03-04 17:18 | CM ---
CM reviewed chart and met with pt bedside in ED. Pt lives alone in 1 story home, 2 [address].
Independent in ADLs, personal care and ambulation at baseline, has been using RW since admission earlier this month. Pt has sacral wounds, she has not been able to perform wound care since her daughter left on Sunday.
Pt confirms she is uninsured, per [facility] during recent admission, does not qualify for MA. Pt never applied for Medicare. Her daughter lives in [facility], was here during last admisssion and was assisting with wound care but needed to return home
for work, she is planning to return this weekend and assist with insurance applications per pt.
Pt declined private pay SNF and VN on last admission.
PCP: pt was able to see a PCP at [facility] since discharge but does not recall his name.
Pharmacy: [place] [phone] [address] [facility]
Disposition pending ongoing medical evaluation, CM will continue to follow for all discharge planning needs.
[2025-03-04] MEDS: LOVENOX 40 MG SC (17:21)
[2025-03-04 20:37] LABS: Troponin I < 0.012 ng/ml
[2025-03-04] MEDS: REMOVE NICOTINE PATCH 1 PATCH REMOVE (21:50)
[2025-03-05] MEDS: ROXICODONE 5 MG PO ×4 (00:27→18:28)
[2025-03-05] MEDS: TYLENOL 1000 MG PO ×4 (00:28→18:28)
[2025-03-05] MEDS: ZOSYN 50 IV ×2 (02:19→08:16)
[2025-03-05] MEDS: DILAUDID 0.5 MG IV ×2 (02:21→20:41)
[2025-03-05 03:29] VITALS: BP 119/52
[2025-03-05 06:00] VITALS: BMI 16.6
[2025-03-05 06:23] LABS: Hematocrit 26.0 % (37.0-47.0); Hemoglobin 8.4 g/dL (12.0-16.0); Mean Corp Hgb Conc. 32.3 g/dL (33.0-37.0); Mean Corpuscular Volume 108.8 fL (81.0-99.0); Platelet Count 337 10^3/uL (130-400); Red Cell Dist. Width 13.7 % (11.5-14.5)
[2025-03-05 06:36] LABS: Blood Urea Nitrogen 15 mg/dl (7-17); Calcium 8.2 mg/dl (8.4-10.2); Carbon Dioxide 31 mmol/L (22-30); Chloride 102 mmol/L (98-107); Estimated Creatinine Clearance 47 ml/min; Glucose 82 mg/dl (70-99); HDL Cholesterol 42 mg/dl; LDL Cholesterol, Calculated 64 mg/dl; Magnesium 2.3 mg/dl (1.6-2.3); Potassium 3.9 mmol/L (3.5-5.1); Sodium 135 mmol/L (135-145); Very Low Density Lipoprotein 13 mg/dl (0-30); eGFR > 60.00
[2025-03-05 07:00] VITALS: BP 143/67
[2025-03-05] MEDS: NICODERM TRANSDERMAL 14 MG TRANSDERM (08:16)
[2025-03-05 10:26] VITALS: BMI 16.6
--- NOTE | 2025-03-05 11:10 | W.PN.HOSP.TC ---
Today's Communication/Plan
-
Assessment / Plan
Assessment / Plan
Looks older then stated age, frail
Scleral Anicteric
MMM
No JVD
CTABL
RRR, S1/S2
Soft, NT, ND, BS+
Warm, Dry
AAOx3
Calm
Unstageable sacral and ischial wounds now with increasing pain, erythema and drainage
-continue IV Zosyn
-wound culture from drainage
-ID following rec to continue zosyn
-general surgery signed off with rec tgo offload, santyl and saline wet to dry along with dakins for odor
-wound care following
Lower extremity Swelling
-Lasix given in ER
-obtain LE US
-give additional Lasix if above negative
-TTE
Atypical right sided chest discomfort
-Troponin negative, repeat this evening
Essential HTN
Underweight
-nutrition support; + Ensure BID ordered
Hyponatremia
-Na stable at 133
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
she is not able to care for her wound appropriately at home
-would move toward snf for skilled need of wound care
Anticipated Discharge: 24 - 48 hours
Subjective/Interval History
-
Date of Service: March 05, 2025
Seen and examined. No new complaints. No acute overnight events.
Objective Data
-
Labs:
Laboratory Results
03/05/25
05:55
WBC 6.3
Hgb 8.4 L
Hct 26.0 L
Plt Count 337
Sodium 135
Potassium 3.9
Chloride 102
Carbon Dioxide 31 H
BUN 15
Creatinine 0.8
Glucose 82
Calcium 8.2 L
Vital Signs:
Vital Signs
Temp Pulse Resp BP Pulse Ox
98.3 F 86 16 143/67 96
03/05/25 07:00 03/05/25 07:00 03/05/25 07:00 03/05/25 07:00 03/05/25 07:00
I&O
03/04/25 03/05/25 03/06/25
06:59 06:59 06:59
Intake Total 240 / 240
Balance 240 / 240
[2025-03-05 11:17] VITALS: BP 128/58
--- NOTE | 2025-03-05 13:07 | W.PN.ID1 ---
Date of Service
Date of Service: March 05, 2025
Today's Communication
Discontinue antibiotics. Continue with local care. Aggressive offloading.
Assessment / Plan
B/L Ischial/buttock wounds
Suspected SSTI of sacral / ischial area
- At presence, no evidence of SSTI
Deconditioning
Recent pubic rami fx
LE edema
Recommendations:
Wounds overall appear clean.
Doubt infection at present given appearance.
Discontinue further Zosyn.
Local care to the ischial/sacral wounds.
Aggressive offloading of the area.
Monitor white count and temperature curve.
����������������������������������������������������������
Chief Complaint
-: Other (Buttock wounds)
Subjective / Review of Systems
Patient seen and examined. Notes ongoing discomfort in the buttock area secondary to wounds. Denies fevers or chills.
Vital Signs / Physical Exam
Vital Signs
Vital Signs
Temp Pulse Resp BP Pulse Ox
97.7 F 95 16 128/58 97
03/05/25 11:17 03/05/25 11:17 03/05/25 11:17 03/05/25 11:17 03/05/25 11:17
Physical Exam
Constitutional: No Acute Distress, Comfortable, Chronically Ill and Non-toxic
Eyes: Sclera Anicteric
Cardiovascular: S1/S2; Negative S3/S4
Pulmonary: Non Labored
Gastrointestinal: Soft and Non Tender
Wound: Other (Buttock/ischial wounds reviewed. No significant purulence. No significant slough. No significant periwound erythema.)
Neurological: Awake and Alert
Psychological: Calm
Objective Data
Lab Data
Lab Results
03/05/25 05:55
03/05/25 05:55
Estimated Creat Clear 47 ml/min 03/05/25 05:55
Total Bilirubin 0.5 mg/dl (0.2-1.3) 03/04/25 12:50
AST 26 U/L (14-36) 03/04/25 12:50
ALT 22 U/L (0-35) 03/04/25 12:50
Alkaline Phosphatase 180 U/L (38-126) H 03/04/25 12:50
Most recent labs reviewed.
Micro Results:
03/04/25 16:32 MRSA Screen - Pending
Nose
Imaging:
03/04/2025 CXR (2 view): hyperinflation suggestive of COPD. Cardiac silhouette and vascular markings appear within normal limits, and without evidence for pulmonary edema. Mild compressive deformities within the mid to lower thoracic spine noted.
02/23/2025 CT pelvis without contrast: no focal abscess seen. Suspected cellulitis around the gluteal cleft and buttocks bilaterally. No bony destruction to suggest osteomyelitis. Subacute left pelvic fracture noted. Mild volume overload/third
spacing and moderate fecal material throughout the colon. Findings concerning for fecal impaction. Please see full dictation for additional detail.
Care Review
Plan reviewed with: Nurse (Wound care nurse)
--- NOTE | 2025-03-05 13:46 | WOUNDNOTE ---
WO RN note: Patient admitted with stage 4 sacral and ischial PI. Known from prior admission and was recently discharged. Patient stated wounds were draining and no one could help her with wound care at home. She is recovering from a pelvic fracture
and fall at home. She was visited yesterday by this signwriter, but could not tolerate wound measurement due to pain. Another visit was completed today to measure wounds and complete wound care after pain medication was given.
See H&P for complete history.
PMH: Smoker, drinks 3-4 beers a day, hernia repair, smoker, anxiety. Per chart review possible COPD.
Wound Location and type/assessment: Patient admitted with: Stage 4 sacral pressure injury with 2 open areas and a minimal amount of fibrous slough. Also admitted with Stage 4 bilateral ischial pressure injury with granulation. Sacral and ischial
wounds were previously unstageable and were debrided in ER by Dr. Carrington on 03/04. Also present on admission are a R heel DTI and a L heel stage 1 PI. Stage 1 PI to spine, L periorbital bruise. L hip appears to be a resolving bruise.
Appetite: Reports she is eating well at hospital and was seen by dietitian. She reports she could not cook for herself at home.
Pressure redistribution devices in place: Centrella Max Air, turning schedule, heels off-loaded with pillows under calves. Patient cannot turn self in bed and needs encouragement and assistance for sacral and ischium off-loading.
Plan: All wound care provided as ordered. Dr. Lai TT with plan. Long discussion with patient on need aggressively off-load sacrum and ischium. Patient was placed on a left semi-side lying position and stated comfort. Patient is agreeable to
continue off-loading. Care plan to be updated and will follow as needed.
Note to case management of equipment requested for discharge: Air mattress.
Recommend follow up at wound care center upon discharge.
--- NOTE | 2025-03-05 14:52 | PN.CDI ---
CDI
- -
CDI:
Physician Documentation Request
Admit Date: 03/04/25 15:06
Dear Doctor,
Please review the following and provide your response in the progress notes.
Clinical Indicators:
Pt admitted with sacral and ischial wounds now with increasing pain, erythema and drainage.
03/05 [facility] RN: ' Patient admitted with: Stage 4 sacral pressure injury with 2 open areas and a minimal amount of fibrous slough. Also admitted with Stage 4 bilateral ischial pressure injury with granulation. Sacral and ischial wounds were
previously unstageable and were debrided in ER by Dr. Carrington on 03/04. Also present on admission are a R heel DTI and a L heel stage 1 PI. Stage 1 PI to spine..'
Physician documentation of the TYPE and location of wounds is required for compliant documentation. Based on the above clinical findings and your assessment, please provide the following in your progress note:
1. Location of the ulcer/wound, including laterality.
2. Type (etiology) of ulcer/wound:
Sacral, bilateral Ischial, spine and bilateral heels Pressure Injuries POA
Sacral, bilateral Ischial, spine and bilateral Heels Non-Pressure wounds POA
Other
Use of terms such as suspected, likely, concern for, or probable (associated with a specific diagnosis that is being evaluated, monitored, or treated as if it exists) are acceptable and can be coded in the inpatient setting, when documented at the
time of discharge.
Thank you,
Brisa Samson RN, BSN
CDI Specialist
[facility]
Please use your independent medical judgment in providing your response.
*Source: National Pressure Ulcer Advisory Panel (NPUAP)
[2025-03-05 15:00] VITALS: BP 128/70
--- NOTE | 2025-03-05 15:29 | CM ---
CM following re: discharge planning.
Reviewed pt's chart, met with pt.
Pt lives alone in 1 story home, 2 steps to enter, Independent in ADLs, personal care and ambulation at baseline, has been using RW since admission earlier this month. Pt has sacral wounds, she has not been able to perform wound care since her
daughter left on Sunday.
Pt confirms she is uninsured, declined private pay SNF and VN.
D/C plan: uncertain at this time and will depend on pt's progress.
CM will follow with discharge plan updates as hospitalization progresses
[2025-03-05] MEDS: LOVENOX 40 MG SC (17:22)
[2025-03-05] MEDS: MIRALAX 17 GRAMS PO (17:25)
[2025-03-05 19:34] VITALS: BP 142/65
[2025-03-05] MEDS: REMOVE NICOTINE PATCH 1 PATCH REMOVE (22:18)
[2025-03-06 03:06] VITALS: BP 141/69
[2025-03-06] MEDS: DILAUDID 0.5 MG IV ×3 (03:38→21:58)
[2025-03-06] MEDS: ROXICODONE 5 MG PO ×3 (04:50→17:55)
[2025-03-06] MEDS: TYLENOL 1000 MG PO ×3 (04:51→17:56)
[2025-03-06 06:00] VITALS: BMI 16.6
[2025-03-06 07:00] VITALS: BP 146/67
[2025-03-06] MEDS: NICODERM TRANSDERMAL 14 MG TRANSDERM (07:52)
[2025-03-06] MEDS: SENOKOT-S 1 TABLET PO (07:59)
[2025-03-06 11:00] VITALS: BP 135/63
--- NOTE | 2025-03-06 11:36 | CM ---
Addendum entered by Anna Ron 03/06/25 18:28:
REferral placed for [facility]
Addendum entered by Anna Ron 03/06/25 17:07:
[facility] denied stating patient does not meet criteria. will place a referral with [facility].
Addendum entered by Anna Ron 03/06/25 15:11:
[facility] does not take private pay. Pt made aware
Referral to [facility] placed
Plan:DC to home pending an agency that accepts private pay
Addendum entered by Anna Ron 03/06/25 13:14:
Pt will not qualify for SNF medicaid. Pt is willing to private pay for VN. Will check on this with [facility]N
Original Note:
Met with patient and DR. Ming yusuf. Pt is now discharged. Pt has agreed to go to SNF if financial resources can be identified
CM will pursue Snf Medicaid opportunity. Explained to pt if she is eligible the next step would be to find an accepting facility(s). IF she is not eligible for this medicaid then pt will be DC to home. Pt verbalized understanding.
Multiple referrals to SNFs made in [facility]
Plan: DC to SNF vs home
--- NOTE | 2025-03-06 12:42 | W.PN.ID1 ---
Date of Service
Date of Service: March 06, 2025
Today's Communication
continue local wound care
Assessment / Plan
B/L Ischial/buttock wounds
Suspected SSTI of sacral / ischial area
- At presence, no evidence of SSTI
Deconditioning
Recent pubic rami fx
LE edema
Recommendations:
Wounds overall appear clean. Doubt infection at present given appearance. Remains afebrile off of antibiotics
Continue Local care to the ischial/sacral wounds.
Aggressive offloading of the area.
Follow up with PCP
����������������������������������������������������������
Chief Complaint
-: Other (Buttock wounds)
Subjective / Review of Systems
remains afebrile
bp stable
no events overnight
Vital Signs / Physical Exam
Vital Signs
Vital Signs
Temp Pulse Resp BP Pulse Ox
99.3 F 93 16 146/67 95
03/06/25 07:00 03/06/25 07:00 03/06/25 07:00 03/06/25 07:00 03/06/25 07:00
Physical Exam
Constitutional: No Acute Distress
Cardiovascular: Regular Rate and S1/S2; Negative Murmur or Rub
Pulmonary: Clear and Symmetric; Negative Wheezes or Rales
Gastrointestinal: Soft, Non Tender, Non Distended and Normal Bowel Sounds
Skin: Warm and Dry; Negative Rash or Jaundice
Wound: Other (sacral wound with small eschar, bilateral ischia wound clean base no odor or surrouding erythema)
Objective Data
Lab Data
Lab Results
03/05/25 05:55
03/05/25 05:55
Estimated Creat Clear 47 ml/min 03/05/25 05:55
Total Bilirubin 0.5 mg/dl (0.2-1.3) 03/04/25 12:50
AST 26 U/L (14-36) 03/04/25 12:50
ALT 22 U/L (0-35) 03/04/25 12:50
Alkaline Phosphatase 180 U/L (38-126) H 03/04/25 12:50
Most recent labs reviewed.
Micro Results:
03/04/25 16:32 MRSA Screen - Final
Nose No Methicillin Resistant Staphylococcus aureus isolated.
Imaging:
03/04/2025 CXR (2 view): hyperinflation suggestive of COPD. Cardiac silhouette and vascular markings appear within normal limits, and without evidence for pulmonary edema. Mild compressive deformities within the mid to lower thoracic spine noted.
02/23/2025 CT pelvis without contrast: no focal abscess seen. Suspected cellulitis around the gluteal cleft and buttocks bilaterally. No bony destruction to suggest osteomyelitis. Subacute left pelvic fracture noted. Mild volume overload/third
spacing and moderate fecal material throughout the colon. Findings concerning for fecal impaction. Please see full dictation for additional detail.
--- NOTE | 2025-03-06 12:44 | W.PN.HOSP.TC ---
Today's Communication/Plan
-
Assessment / Plan
Assessment / Plan
Looks older then stated age, frail
Scleral Anicteric
MMM
No JVD
CTABL
RRR, S1/S2
Soft, NT, ND, BS+
Warm, Dry
AAOx3
Calm
Unstageable sacral and ischial wounds now with increasing pain, erythema and drainage
-continue IV Zosyn
-wound culture from drainage
-ID following rec to discontinue zosyn (03/05)
-general surgery signed off with rec tgo offload, santyl and saline wet to dry along with dakins for odor
-wound care following
Lower extremity Swelling
-Lasix given in ER
-obtain LE US
-give additional Lasix if above negative
-TTE
Atypical right sided chest discomfort
-Troponin negative, repeat this evening
Essential HTN
Underweight
-nutrition support; + Ensure BID ordered
Hyponatremia
-Na stable at 133
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
she is not able to care for her wound appropriately at home
-would move toward snf for skilled need of wound care
DC once CM to figure out dispo or home care services as she is uninsured
Anticipated Discharge: 24 - 48 hours
Subjective/Interval History
-
Date of Service: March 06, 2025
seen and examiend. no new complaints. no acute overnight events
Objective Data
-
Vital Signs:
Vital Signs
Temp Pulse Resp BP Pulse Ox
99.3 F 93 16 146/67 95
03/06/25 07:00 03/06/25 07:00 03/06/25 07:00 03/06/25 07:00 03/06/25 07:00
I&O
03/05/25 03/06/25 03/07/25
06:59 06:59 06:59
Intake Total 240 / 240 1978
Balance 240 / 240 1978
[2025-03-06 15:00] VITALS: BP 140/77
[2025-03-06] MEDS: LOVENOX 40 MG SC (17:55)
[2025-03-06 19:15] VITALS: BP 124/68
[2025-03-06] MEDS: REMOVE NICOTINE PATCH 1 PATCH REMOVE (22:01)
[2025-03-06 23:16] VITALS: BP 140/68
[2025-03-07] MEDS: TYLENOL 1000 MG PO ×3 (01:53→14:36)
[2025-03-07] MEDS: ROXICODONE 5 MG PO ×3 (01:53→14:36)
[2025-03-07 03:30] VITALS: BP 147/83
[2025-03-07] MEDS: DILAUDID 0.5 MG IV (04:07)
[2025-03-07 06:00] VITALS: BMI 16.4
[2025-03-07 07:00] VITALS: BP 141/72
[2025-03-07] MEDS: NICODERM TRANSDERMAL 14 MG TRANSDERM (08:17)
--- NOTE | 2025-03-07 11:29 | W.DCSUMMARY ---
Addendum entered and electronically signed by Devendra Lai MD 03/07/25 14:31:
Stage 4 sacral pressure injury
Stage 4 bilateral ischial pressure injury
R heel DTI and a L heel stage 1 PI. Stage 1 PI to spine
Original Note:
Discharge Summary
Discharge Data
Date of Admission: 03/04/25
Date of Discharge: 03/07/25
-
Pending Results: No
Hospital Course
69 yo woman with hx tobacco use, HTN, anxiety, recent admission 02/15-02/27 post mechanical fall resulting in pubic rami fracture + multiple deep pressure injury wounds
Presented for increasing discharge from back with. Evaluated by infectious diseases and general surgery. General surgery recommended local wound care with Santyl saline wet-to-dry and Dakin's. Offloading. Nutritional support. No indication for
antibiotics. Infectious diseases initially recommended antibiotics however no white count afebrile and from exam findings did not believe it was infected therefore antibiotics were discontinued. Will need to continue to follow strict offloading.
Will need to continue local wound care, offloading.
Due to lack of insurance unable to place at [facility] nor able to set up HH. Per will need to private pay for HH.
Seen and examiend on the day of discharge which was 03/07/25. No new complaints. No acute ovenright events
Looks older then stated age, frail
Scleral Anicteric
MMM
No JVD
CTABL
RRR, S1/S2
Soft, NT, ND, BS+
Warm, Dry
AAOx3
Calm
More than 30 minutes spent in discharge including
Final examination of the patient
Summarizing hospital stay
Instructions for continuing care to all relevant caregivers
Preparation of discharge records, prescriptions, and referral forms
Total time spent (in minutes): 33mins
Discharge Plan
-
Patient Disposition: Home with Home Care
Discharge Diagnosis/Procedures: Sacral wound
Diet: As tolerated
Activity: As tolerated
Activity Restrictions/Additional Instructions:
Presented for increasing discharge from back with. Evaluated by infectious diseases and general surgery. General surgery recommended local wound care with Santyl saline wet-to-dry and Dakin's. Offloading. Nutritional support. No indication for
antibiotics. Infectious diseases initially recommended antibiotics however no white count afebrile and from exam findings did not believe it was infected therefore antibiotics were discontinued. Will need to continue to follow strict offloading.
Will need to continue local wound care, offloading.
Wound Care Instructions Sacral and right and left ischium- Clean with normal saline and apply saline moistened gauze. Secure with silicone foam dressings or ABD and tape. Change daily and PRN drainage.
Bilateral Heels (stage 1 left, DTI on right)- No-sting barrier and adhesive foam. Change Q 3 days.
Spine- Keep covered with silicone border foam
Follow up at wound care center call for an appointment.
Stand Alone Forms: Return to Work
Referrals:
NONE,* [Family Provider, Internal Medicine]
Prescriptions:
Continued
acetaminophen [Tylenol Extra Strength] 500 mg tablet
1,000 mg PO QIDPRN PRN (Reason: mild pain)
oxycodone 5 mg Tablet
5 mg PO Q6HPRN PRN (Reason: Moderate Severe pain) Qty: 28 0RF
Discharge Orders:
Discharge Patient (As Directed); Ordered 03/07/25
Ordered By: Devendra Lai
Discharge Date and Time
Print Language: KOREAN
--- NOTE | 2025-03-07 12:51 | CM ---
CM following re: discharge planning.
Reviewed pt's chart, met with pt.
Pt is aware she is discharged home today. Pt stated she is aware she will be on her own with wound care as before. Pt asked to discuss her discharge medication. RN is aware. Pt is aware that no agency accepted her for services due to her being
uninsured. Pt asked to have some wound care supplies and RN is informed.
Pt stated she is securing her ride and someone will transport her home late afternoon. Pt stated she has a walker at home, she uses a walker and that's why she want someone will transport her home.
D/C plan: home with wound care provided on her own.
[2025-03-07 15:15] VITALS: BP 152/74
--- NOTE | 2025-03-09 09:54 | CM ---
Addendum entered by Lisa Cuellar 03/09/25 13:57:
Explained to daughter patient needs to have a PCP, was [facility] and to receive home care they would need to orders from the primary care so they should make a f/u appointment at the residency clinic.
Addendum entered by Lisa Cuellar 03/09/25 13:50:
[facility]. Multiple additional referrals sent. TC to [facility]- [phone] spoke with [facility] (cell phone [phone]), they do accept private pay and are willing to speak with the daughter and patient.
TC to Daughter Mary, provided phone number for [facility], [facility], and if additional info is needed or if they can not assist for her to call me back.
Original Note:
Patient not accepted for private pay for Home Care by [facility], [facility] or [facility]. Pt was discharged with supplies 03/07/25. Placed referral to [facility] today. Await determination.
== END 2025-03-07 15:35 | disposition home or self-care (01) | DRG 593 ==
LOC: 2 NORTH 15:06
PROVIDERS: ADMITTING PHYSICIAN Student in an Organized Health Care Education/Training Program; ATTENDING PHYSICIAN Hospitalist; CONSULT PHYSICIAN Surgery; EMERGENCY PHYSICIAN Student in an Organized Health Care Education/Training Program; OTHER PHYSICIAN Internal Medicine Infectious Disease
DX: L89.154 Pressure ulcer of sacral region, stage 4 (principal); E87.1 Hypo-osmolality and hyponatremia; J81.1 Chronic pulmonary edema; Z68.1 Body mass index [BMI] 19.9 or less, adult; F17.200 Nicotine dependence, unspecified, uncomplicated; L89.324 Pressure ulcer of left buttock, stage 4; L89.314 Pressure ulcer of right buttock, stage 4; Z59.71 Insufficient health insurance coverage; I10 Essential (primary) hypertension; R63.6 Underweight; L89.621 Pressure ulcer of left heel, stage 1
CPT/HCPCS: 71046; 80048; 80053; 80061; 83735; 83880; 84443; 84484; 85025; 85027; 87070; 93005; 93306; 93970; 96374; 96375; 99291